=== PATIENT | female | born 1955 | race Caucasian/White ===

== ENCOUNTER → 2017-03-10 | Outpatient (CLI) | payer OTHER | END | disposition home or self-care (01) | LOC: YCFC.O 11:50 | PROVIDERS: ATTEND Nurse Practitioner Family | DX: E03.9 Hypothyroidism, unspecified (principal); E78.5 Hyperlipidemia, unspecified; E11.9 Type 2 diabetes mellitus without complications ==

== ENCOUNTER → 2017-05-08 | Outpatient (CLI) | payer OTHER ==
--- NOTE | 2017-05-11 10:48 | RAD ---
EXAM DESCRIPTION: Knee,Right 2 or More Views CLINICAL HISTORY: 61 years, Female, OTHER INSTABILITY, RIGHT KNEE COMPARISON: February 21, 2010 TECHNIQUE: Three views of the right knee. FINDINGS: Severe degenerative changes with [id number] appearance of the medial joint compartment is apparent with progression of the joint space narrowing and sclerosis and hypertrophic change since prior remote study. Mild chondrocalcinosis of the lateral joint compartment is present and moderate patellofemoral disease with a suggestion of very minimal joint fluid is noted. IMPRESSION: 1. Severe degenerative changes of the right knee, particularly medial joint compartment. Electronically signed by: Brett Pradhan MD 05/11/2017 10:46 AM CDT
--- NOTE | 2017-05-11 10:49 | RAD ---
EXAM DESCRIPTION: Lumbar Spine 5 Views CLINICAL HISTORY: LOW BACK PAIN COMPARISON: None Available. TECHNIQUE: Five views of the lumbar spine FINDINGS: Lower lumbar degenerative changes with facet hypertrophy and sclerosis is present with very early grade 1 degenerative spondylolisthesis at L4-5 and advanced facet sclerosis but normal alignment at L5-S1. Mild anterior degenerative lipping is present. The oblique views demonstrate no evidence of pars defects at either L4 or L5. Vertebral height is maintained and disc height is well-maintained as well. IMPRESSION: Mild degenerative disc disease with moderate facet sclerosis in the mid and lower lumbar spine with early degenerative spondylolisthesis L4-5, grade 1. Electronically signed by: Brett Pradhan MD 05/11/2017 10:48 AM CDT
== END ==
LOC: YCFC.O 14:38
PROVIDERS: ATTEND Nurse Practitioner Family
DX: M25.369 Other instability, unspecified knee (principal); M51.36 Other intervertebral disc degeneration, lumbar region; M43.16 Spondylolisthesis, lumbar region; M54.5 Low back pain

== ENCOUNTER → 2017-06-03 | Outpatient (CLI) | payer OTHER | END | disposition home or self-care (01) | LOC: YCFC.O 08:25 | PROVIDERS: ATTEND Nurse Practitioner Family | DX: E11.9 Type 2 diabetes mellitus without complications (principal) ==

== ENCOUNTER 2017-11-01 10:18 | Emergency (ER) | payer OTHER ==
[2017-11-01] MEDS: IPRATROPIUM/ALBUTEROL 3 ML VIAL NEB ONE (10:45)
[2017-11-01] MEDS ORDERED: cefTRIAXone SODIUM 1 GM VIAL ONE (11:40)
--- NOTE | 2017-11-01 11:42 | ED.PDOC ---
History of Present Illness - General Chief Complaint: General Stated Complaint: cough and doesn't feel well Time Seen by Provider: 11/01/17 10:31 Source: patient Exam Limitations: no limitations - History of Present Illness Initial Comments: The patient is a 62-year-old female presented to the emergency room secondary to cough for the last week that has been persistent. The patient does have a low-grade fever today. She is not having any chest pain but she is sore from coughing. She reports that she did have a mild sore throat at the start of it. No syncope or near syncope. She does have a history of asthma and COPD. She is out of her inhalers. She has had a productive sputum. Timing/Duration: 1 week Severity: mild Improving Factors: nothing Worsening Factors: nothing Associated Symptoms: cough, fever/chills, loss of appetite, malaise Allergies/Adverse Reactions: Allergies NO KNOWN ALLERGY Allergy (Verified 01/07/16 13:36) Home Medications: Ambulatory Orders Cephalexin [Keflex] 500 mg PO Q6HR #10 days 01/07/16 Review of Systems - Review of Systems Constitutional: States: fever, malaise EENTM: States: throat pain. Denies: eye pain, ear pain, nose congestion Respiratory: States: cough, short of breath, wheezing - mild. Denies: stridor Cardiology: States: no symptoms reported Gastrointestinal/Abdominal: States: no symptoms reported Genitourinary: States: no symptoms reported Musculoskeletal: States: no symptoms reported - chronic changes only Skin: States: no symptoms reported Neurological: States: anxiety Endocrine: States: no symptoms reported All other Systems: No Change from Baseline Past Medical History (General) - Patient Medical History Hx Seizures: No Hx Stroke: No Hx Dementia: No Hx Asthma: Yes Hx of COPD: Yes Hx Cardiac Disorders: Yes Hx Congestive Heart Failure: Yes Hx Pacemaker: No Hx Hypertension: Yes Hx Thyroid Disease: Yes Hx Diabetes: Yes Hx Gastroesophageal Reflux: Yes Hx Renal Disease: Yes Hx Cancer: No Hx of HIV: No Hx Hepatitis C: No Hx MRSA: No MRSA Source:: Wound Surgical History: appendectomy, Hysterectomy, other - Vaccination History Hx Influenza Vaccination: No Hx Pneumococcal Vaccination: No - Social History Hx Tobacco Use: No Hx Chewing Tobacco Use: No Hx Alcohol Use: No Hx Substance Use: No Hx Substance Use Treatment: No Hx Depression: No Feels Threatened In Home Enviroment: No Feels Threatened In a Relationship: No Hx Physical Abuse: No Hx Emotional Abuse: No Hx Suspected Abuse: No - Female History Patient is a Female of Child Bearing Age (10 -59 yrs old): No Patient : No Family Medical History - Family History Mother Living Status: Still Living Hx Family Diabetes: Yes Physical Exam - Physical Exam General Appearance: Alert, Anxious, No apparent distress Eye Exam: bilateral normal Ears, Nose, Throat: hearing grossly normal, nasal congestion - mild Neck: full range of motion, supple Respiratory: no respiratory distress, no accessory muscle use, other - he patient does have a rattly cough. She also does have some mild Rales left lower lung field. There are mild scattered wheezes. She moves air well. 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 She does not appear to have any significant lobar pneumonia, she is not septic, and she is not hypoxic. The patient is going to be placed on Combivent 4 times daily as well as an inhaled corticosteroid for her asthma and COPD component. For the infectious component she'll be covered with Levaquin 500 mg daily for the next 5 days. She needs to keep herself well-hydrated. She needs to control her blood sugars. Oral corticosteroids are being held secondary to her diabetes. She needs to follow up with her primary care doctor early next week. ER warnings were given for any significant worsening. - Results/Orders Results/Orders: Laboratory Tests 11/01/17 10:46 POC Glucose 183 H rapid flu is negative. Chest x-ray shows mild scattered infiltrates. No obvious lobar pneumonia. Departure - Departure Clinical Impression: Asthma exacerbation Acute bronchitis Qualifiers: Bronchitis organism: unspecified organism Qualified Code(s): J20.9 - Acute bronchitis, unspecified Disposition: Discharge to Home or Self Care Condition: Fair Departure Forms: ED Discharge - Pt. Copy, Patient Portal Self Enrollment Instructions: DI for Acute Bronchitis Diet: diabetic diet Activity: increase activity as tolerated Referrals: Ermelinda Gross MD [Primary Care Provider] - 1-2 Weeks Home Medications: Ambulatory Orders Cephalexin [Keflex] 500 mg PO Q6HR #10 days 01/07/16 Additional Instructions: the patient is a 62-year-old female presenting to the emergency room with a history of a cough and a low-grade fever for the last week. She does not appear to have any significant lobar pneumonia, she is not septic, and she is not hypoxic. The patient is going to be placed on Combivent 4 times daily as well as an inhaled corticosteroid for her asthma and COPD component. For the infectious component she'll be covered with Levaquin 500 mg daily for the next 5 days. She needs to keep herself well-hydrated. She needs to control her blood sugars. Oral corticosteroids are being held secondary to her diabetes. She needs to follow up with her primary care doctor early next week. ER warnings were given for any significant worsening.
--- NOTE | 2017-11-01 11:48 | RAD ---
EXAM: Frontal and lateral chest X-ray's obtained. CLINICAL INDICATION: cough, body aches 2 weeks COMPARISON: Chest x-ray from 08/23/2013 FINDINGS: There is prominence of the interstitial/pulmonary vascular markings throughout the lungs with superimposed hazy/patchy increased density in the right mid to lower lung zones. The cardiomediastinal silhouette and pulmonary vasculature appear within normal limits. Visualized osseous structures are moderately demineralized. IMPRESSION: Nonspecific findings which can be seen in the setting of mild congestion and pulmonary edema, and/or atypical pneumonitis/early pneumonia. Continued imaging follow-up is recommended. Electronically signed by: Evaristo Mccracken MD 11/01/2017 11:47 AM [facility] Workstation: [id number]
[2017-11-01] MEDS: levoFLOXacin 500 MG TAB PO ONE (12:07)
[2017-11-01] MEDS: cefTRIAXone SODIUM 1 GM VIAL IM ONE (12:07)
[2017-11-01 12:33] VITALS: BP 133/57; TEMP 99.8; O2SAT 92
== END 2017-11-01 12:33 | disposition home or self-care (01) ==
LOC: ER 10:18
DX: J20.9 Acute bronchitis, unspecified (principal); J45.901 Unspecified asthma with (acute) exacerbation; J44.9 Chronic obstructive pulmonary disease, unspecified; I11.0 Hypertensive heart disease with heart failure; I50.9 Heart failure, unspecified; E07.9 Disorder of thyroid, unspecified; E11.9 Type 2 diabetes mellitus without complications
CPT/HCPCS: 36416; 71020; 82948; 87502; 94640; J0696; J7620

== ENCOUNTER 2018-02-05 09:11 | Emergency (ER) | payer OTHER ==
[2018-02-05 09:32] VITALS: BP 117/77; TEMP 97.6; O2SAT 98
--- NOTE | 2018-02-05 09:40 | ED.PDOC ---
History of Present Illness - General Chief Complaint: Skin/Abrasion/Tear Stated Complaint: left leg swollen and red Time Seen by Provider: 02/05/18 09:34 Source: patient Exam Limitations: no limitations - History of Present Illness Initial Comments: Colette Mcleod 62 y/o female came to ER with redness and swelling left anterior leg for the last 3 days .No history of leg trauma,,pain.fever/chills.Stated had just got red also her right legs started swelling initially but went away.Had cbc done outpatient today which came back wiyh normal result. Timing/Duration: other - 3 days Severity: moderate Location: extremities - left lower leg Improving Factors: nothing Worsening Factors: nothing Associated Symptoms: other - see hpi Allergies/Adverse Reactions: Allergies NO KNOWN ALLERGY Allergy (Verified 01/07/16 13:36) Home Medications: Ambulatory Orders Cephalexin [Keflex] 500 mg PO Q6HR #10 days 01/07/16 Cephalexin 1,000 mg PO BID 10 Days #40 cap 02/05/18 Review of Systems - Review of Systems Constitutional: States: no symptoms reported EENTM: States: no symptoms reported Respiratory: States: no symptoms reported Cardiology: States: no symptoms reported Gastrointestinal/Abdominal: States: no symptoms reported Genitourinary: States: no symptoms reported Musculoskeletal: States: no symptoms reported Skin: States: see HPI Neurological: States: no symptoms reported Past Medical History (General) - Patient Medical History Hx Seizures: No Hx Stroke: No Hx Dementia: No Hx Asthma: Yes Hx of COPD: Yes Hx Cardiac Disorders: Yes Hx Congestive Heart Failure: Yes Hx Pacemaker: No Hx Hypertension: Yes Hx Thyroid Disease: Yes Hx Diabetes: Yes Hx Gastroesophageal Reflux: Yes Hx Renal Disease: Yes Hx Cancer: No Hx of HIV: No Hx Hepatitis C: No Hx MRSA: No MRSA Source:: Wound Surgical History: appendectomy, other - ,hysterectomy,right knee - Vaccination History Hx Influenza Vaccination: No Hx Pneumococcal Vaccination: No - Social History Hx Tobacco Use: No Hx Chewing Tobacco Use: No Hx Alcohol Use: No Hx Substance Use: No Hx Substance Use Treatment: No Hx Depression: No Hx Physical Abuse: No Hx Emotional Abuse: No Hx Suspected Abuse: No - Activities of Daily Living Grooming Ability: Independent Eating (Feeding) Ability: Independent Toileting Ability: Independent - Female History Patient : No Family Medical History - Family History Mother Living Status: Still Living Hx Family Diabetes: Yes - son,dad,mom Physical Exam - Physical Exam General Appearance: Agitated, Comfortable, No apparent distress Eyes, Ears, Nose, Throat Exam: normal ENT inspection Neck: non-tender, full range of motion, supple Cardiovascular/Chest: normal peripheral pulses, regular rate, rhythm, no gallop , no murmur Respiratory: chest non-tender, normal breath sounds, no respiratory distress Gastrointestinal/Abdominal: non tender, soft, no organomegaly Back Exam: no CVA tenderness Extremity: no pedal edema, no calf tenderness, other - negative Homans sign left leg Neurologic: alert, oriented x 3 Skin Exam: warm/dry, normal color Skin Problem Location: lower extremities - left leg Skin Character: erythema Lymphatic: no adenopathy Progress - Progress Progress: 02/05/18 09:44 Vital Signs - 24 hr 02/05/18 09:27 Temperature 97.6 F Pulse Rate [ 91 H left brachial] Respiratory 18 Rate Blood Pressure 117/77 [left brachial] O2 Sat by Pulse 98 Oximetry Departure - Departure Clinical Impression: Cellulitis Qualifiers: Site of cellulitis: extremity Site of cellulitis of extremity: lower extremity Laterality: left Qualified Code(s): L03.116 - Cellulitis of left lower limb Time of Disposition: 09:45 Disposition: Discharge to Home or Self Care Condition: Fair Departure Forms: ED Discharge - Pt. Copy, Patient Portal Self Enrollment Instructions: Cellulitis, DI for Cellulitis -- Adult Referrals: Ermelinda Gross MD [Primary Care Provider] - 1-2 Weeks Prescriptions: Cephalexin 1,000 mg PO BID 10 Days #40 cap Home Medications: Ambulatory Orders Cephalexin [Keflex] 500 mg PO Q6HR #10 days 01/07/16 Cephalexin 1,000 mg PO BID 10 Days #40 cap 02/05/18 Additional Instructions: Elevate left leg 20 degrees at bedtime until better;follow up with your primary Md 08 February 2018
== END 2018-02-05 09:55 | disposition home or self-care (01) ==
LOC: ER 09:11
DX: L03.116 Cellulitis of left lower limb (principal); J44.9 Chronic obstructive pulmonary disease, unspecified; I11.0 Hypertensive heart disease with heart failure; I50.9 Heart failure, unspecified; E07.9 Disorder of thyroid, unspecified; E11.9 Type 2 diabetes mellitus without complications; K21.9 Gastro-esophageal reflux disease without esophagitis

== ENCOUNTER → 2018-02-05 | Outpatient (CLI) | payer OTHER | LOC: LAB.O 08:40 | DX: E03.9 Hypothyroidism, unspecified (principal); I10 Essential (primary) hypertension; E11.9 Type 2 diabetes mellitus without complications; E78.5 Hyperlipidemia, unspecified ==

== ENCOUNTER 2018-02-14 14:07 | Emergency (ER) | payer OTHER ==
--- NOTE | 2018-02-14 14:29 | ED.PDOC ---
History of Present Illness - General Chief Complaint: Skin/Abrasion/Tear Stated Complaint: LLE redness and swelling Time Seen by Provider: 02/14/18 14:08 Source: patient Exam Limitations: no limitations - History of Present Illness Initial Comments: the patient's is 62-year-old female presenting to the emergency room secondary to concern over blisters forming over her area of stasis dermatitis to the left anterior lower leg. She is currently taking 2 antibiotics for this and in general the cellulitis is improving. She developed blisters a couple of days ago in that area from the extra edema. The blisters are about to rupture and they do clinically appear to simply be serous exudate. No evidence of edson pus. Blisters were left intact. By area of tracing around the area of cellulitis the cellulitis is decreasing in size. She does still have significant edema. Timing/Duration: unsure Severity: mild Improving Factors: nothing Worsening Factors: nothing Associated Symptoms: denies symptoms Allergies/Adverse Reactions: Allergies anxiety medication Allergy (Uncoded 02/14/18 14:20) Home Medications: Ambulatory Orders Cephalexin [Keflex] 500 mg PO Q6HR #10 days 01/07/16 Cephalexin 1,000 mg PO BID 10 Days #40 cap 02/05/18 Review of Systems - Review of Systems Review of Systems: 02/14/18 14:28 review of systems is for new symptoms or change in symptoms only Constitutional: States: no symptoms reported EENTM: States: no symptoms reported Respiratory: States: no symptoms reported Cardiology: States: no symptoms reported Gastrointestinal/Abdominal: States: no symptoms reported Genitourinary: States: no symptoms reported Musculoskeletal: States: no symptoms reported Skin: States: see HPI Neurological: States: no symptoms reported Endocrine: States: no symptoms reported All other Systems: No Change from Baseline Past Medical History (General) - Patient Medical History Hx Seizures: No Hx Stroke: No Hx Dementia: No Hx Asthma: Yes Hx of COPD: Yes Hx Cardiac Disorders: Yes Hx Congestive Heart Failure: Yes Hx Pacemaker: No Hx Hypertension: Yes Hx Thyroid Disease: Yes Hx Diabetes: Yes Hx Gastroesophageal Reflux: Yes Hx Renal Disease: Yes Hx Cancer: No Hx of HIV: No Hx Hepatitis C: No Hx MRSA: No MRSA Source:: Wound Surgical History: Hysterectomy - Vaccination History Hx Influenza Vaccination: No Hx Pneumococcal Vaccination: No - Social History Hx Tobacco Use: No Hx Chewing Tobacco Use: No Hx Alcohol Use: No Hx Substance Use: No Hx Substance Use Treatment: No Hx Depression: No Hx Physical Abuse: No Hx Emotional Abuse: No Hx Suspected Abuse: No - Female History Patient : No Family Medical History - Family History Mother Living Status: Still Living Hx Family Diabetes: Yes - son,dad,mom Physical Exam - Physical Exam General Appearance: Alert, Anxious, No apparent distress Eye Exam: bilateral normal Ears, Nose, Throat: hearing grossly normal, normal ENT inspection Neck: full range of motion, supple Respiratory: no respiratory distress, no accessory muscle use Peripheral Pulses: radial,right: 2+, radial,left: 2+ Gastrointestinal/Abdominal: non tender - obese, soft Rectal Exam: deferred Back Exam: no CVA tenderness, no vertebral tenderness Extremity: normal range of motion, no calf tenderness, normal capillary refill, other - the patient does have 2+ edema to bilateral lower extremities. 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 Comments: Vital Signs - 24 hr 02/14/18 14:12 Temperature 98.1 F Pulse Rate [ 87 pulse ox] Respiratory 18 Rate Blood Pressure 146/79 [Left Arm] O2 Sat by Pulse 98 Oximetry Progress - Progress Progress: 02/14/18 14:29 the patient's a 62-year-old female presenting to the emergency room secondary to blister formation in the area of her stasis dermatitis to her left lower leg. The fluid in the blisters appears to be simply serous fluid. Blisters are left intact. The patient needs to obtain some Aquaphor or Vaseline and coat the leg with a thin layer twice daily. Additionally she can use Rafa wraps starting at the toe and extending up to just below the knee and adjust these 4-5 times daily to prevent any constriction bands. This will help reduce the edema and reduced blister formation. She needs to continue her antibiotic therapy. She needs to follow up with her primary care doctor later in the week. In general the area of cellulitis does appear to be reducing based on the tracing on her leg. ER warnings were given for any acute worsening. If the blisters ruptured and the patient is to wash the denuded area 2-3 times daily with an antibacterial soap and water. Departure - Departure Clinical Impression: Stasis dermatitis Qualifiers: Laterality: left Qualified Code(s): I87.2 - Venous insufficiency (chronic) ( peripheral) Disposition: Discharge to Home or Self Care Condition: Fair Departure Forms: ED Discharge - Pt. Copy, Patient Portal Self Enrollment Instructions: DI for Wound Infection Diet: diabetic diet Activity: increase activity as tolerated Referrals: Ermelinda Gross MD [Primary Care Provider] - 1-5 Days Home Medications: Ambulatory Orders Cephalexin [Keflex] 500 mg PO Q6HR #10 days 01/07/16 Cephalexin 1,000 mg PO BID 10 Days #40 cap 02/05/18 Additional Instructions: the patient's a 62-year-old female presenting to the emergency room secondary to blister formation in the area of her stasis dermatitis to her left lower leg. The fluid in the blisters appears to be simply serous fluid. Blisters are left intact. The patient needs to obtain some Aquaphor or Vaseline and coat the leg with a thin layer twice daily. Additionally she can use Rafa wraps starting at the toe and extending up to just below the knee and adjust these 4-5 times daily to prevent any constriction bands. This will help reduce the edema and reduced blister formation. She needs to continue her antibiotic therapy. She needs to follow up with her primary care doctor later in the week. In general the area of cellulitis does appear to be reducing based on the tracing on her leg. ER warnings were given for any acute worsening. If the blisters ruptured and the patient is to wash the denuded area 2-3 times daily with an antibacterial soap and water.
[2018-02-14 14:53] VITALS: BP 106/70; TEMP 98.1; O2SAT 97
== END 2018-02-14 14:39 | disposition home or self-care (01) ==
LOC: ER 14:07
DX: I87.2 Venous insufficiency (chronic) (peripheral) (principal); L03.116 Cellulitis of left lower limb; J44.9 Chronic obstructive pulmonary disease, unspecified; I11.0 Hypertensive heart disease with heart failure; I50.9 Heart failure, unspecified; E11.9 Type 2 diabetes mellitus without complications; K21.9 Gastro-esophageal reflux disease without esophagitis; E07.9 Disorder of thyroid, unspecified; N28.9 Disorder of kidney and ureter, unspecified

== ENCOUNTER → 2018-04-10 | Outpatient (CLI) | payer OTHER | LOC: YCFC.O 10:53 | DX: R79.89 Other specified abnormal findings of blood chemistry (principal) ==

== ENCOUNTER 2018-05-07 04:01 | Emergency (ER) | payer OTHER ==
--- NOTE | 2018-05-07 05:13 | RAD ---
EXAM DESCRIPTION: Single view of the chest CLINICAL HISTORY: hyperglycemia COMPARISON: 11/01/2017 FINDINGS: Single frontal view of the chest. The cardiomediastinal silhouette has normal size and contour. No pneumothorax or large effusion. Bilateral interstitial opacities relatively stable in appearance. No displaced rib fractures identified. Low lung volumes. Elevation the left hemidiaphragm. Upper abdominal soft tissues are unremarkable. IMPRESSION: 1. Bilateral interstitial opacities are again identified and may be related lung disease however superimposed acute process such as edema or interstitial pneumonia cannot be excluded. Electronically signed by: Jhon Torres 05/07/2018 5:12 AM CDT
[2018-05-07] MEDS ORDERED: SODIUM CHLORIDE 0.9% 1000ML 500 ML IVS ONE (05:17)
--- NOTE | 2018-05-07 05:43 | ED.PDOC ---
History of Present Illness - General Chief Complaint: Diabetic Complaint Stated Complaint: disoriented, elevated blood sugars Time Seen by Provider: 05/07/18 04:21 Source: patient, RN notes reviewed, Vital Signs reviewed, family, old records Exam Limitations: clinical condition, other - she won't answer many questions. Insists on giving her something to drink. - History of Present Illness Initial Comments: Her son reports that her decline started about 2 days ago. She began complaining of generalized pain to the point where she couldn't walk any more & began using a wheel chair. She refused to come to the hospital. Tonight she couldn't get out of bed so he called EMS. She was well before 2 days ago, has never had this before, has been taking her medicines as usual & eating as she normally does. He cannot account for anything new. Just generalized pain, inability to walk, weakness & hyperglycemia. She uniformly answers no to ROS questions. Timing/Duration: getting worse, other - 2 days ago Severity: severe Improving Factors: nothing Worsening Factors: nothing Associated Symptoms: weakness Allergies/Adverse Reactions: Allergies anxiety medication Allergy (Uncoded 02/14/18 14:20) Home Medications: Ambulatory Orders Cephalexin [Keflex] 500 mg PO Q6HR #10 days 01/07/16 Cephalexin 1,000 mg PO BID 10 Days #40 cap 02/05/18 Review of Systems - Review of Systems Constitutional: States: see HPI, weakness EENTM: States: no symptoms reported Respiratory: States: no symptoms reported Cardiology: States: no symptoms reported Gastrointestinal/Abdominal: States: no symptoms reported Genitourinary: States: no symptoms reported Musculoskeletal: States: other - myalgias Skin: States: no symptoms reported Neurological: States: see HPI Endocrine: States: see HPI Hematologic/Lymphatic: States: no symptoms reported Past Medical History (General) - Patient Medical History Hx Seizures: No Hx Stroke: No Hx Dementia: No Hx Asthma: Yes Hx of COPD: Yes Hx Cardiac Disorders: Yes Hx Congestive Heart Failure: Yes Hx Pacemaker: No Hx Hypertension: Yes Hx Thyroid Disease: Yes Hx Diabetes: Yes Hx Gastroesophageal Reflux: Yes Hx Renal Disease: Yes Hx Cancer: No Hx of HIV: No Hx Hepatitis C: No Hx MRSA: No MRSA Source:: Wound Surgical History: Hysterectomy - Vaccination History Hx Influenza Vaccination: No Hx Pneumococcal Vaccination: No - Social History Hx Tobacco Use: No Hx Chewing Tobacco Use: No Hx Alcohol Use: No Hx Substance Use: No Hx Substance Use Treatment: No Hx Depression: No Hx Physical Abuse: No Hx Emotional Abuse: No Hx Suspected Abuse: No - Female History Patient : No Family Medical History - Family History Mother Living Status: Still Living Hx Family Diabetes: Yes - son,dad,mom Physical Exam - Physical Exam General Appearance: Alert, Ill Appearing, Restless Eye Exam: bilateral normal Ears, Nose, Throat: hearing grossly normal, other - dry mucosa Neck: full range of motion, supple, normal inspection Respiratory: lungs clear, normal breath sounds - RR 24 Cardiovascular/Chest: regular rate, rhythm, no gallop, no JVD, no murmur Gastrointestinal/Abdominal: non tender, soft, other - obese Extremity: normal capillary refill, pedal edema, other - will only minimally comply with testing Neurologic: flying i instructor II-XII nml as tested, alert, depressed affect Skin Exam: normal color, warm/dry, other - poor turgor Progress - Progress Progress: 05/07/18 05:41 She seems to feel no better but she continues to answer only a minimal number of questions. She does now admit to having diarrhea at home but she won't give any details. She insists it is hurting her back to lay flat & that's about all she will talk about. Clinically she does appear dry but considering her CXR & her peripheral edema I'm slowly hydrating her. - Results/Orders Results/Orders: Na 134; Cr 1.23; BUN/Cr 24; glu 359; WBC 10; Hgb 12; Plt 123; CK 129; Tr 0.02; BNP 87; UA glu but no ketones - EKG/XRAY/CT EKG: Sinus, Tachy Comments: HR 106; LAD; poor Rwave progression; normal intervals XRAY: chest - bilateral interstitial opacities but stable from previous Departure - Departure Clinical Impression: Hyperglycemia Diabetes mellitus Qualifiers: Diabetes mellitus type: type 2 Diabetes mellitus complication status: without complication Diabetes mellitus longterm insulin use: with longterm use Qualified Code(s): E11.9 - Type 2 diabetes mellitus without complications; Z79.4 - [facility] (current) use of insulin Disposition: Discharge to Home or Self Care Condition: Fair Departure Forms: ED Discharge - Pt. Copy, Patient Portal Self Enrollment Instructions: DI for Diabetes Type 2 Referrals: Ermelinda Gross MD [Primary Care Provider] - 1-2 Weeks Home Medications: Ambulatory Orders Cephalexin [Keflex] 500 mg PO Q6HR #10 days 01/07/16 Cephalexin 1,000 mg PO BID 10 Days #40 cap 02/05/18
[2018-05-07] MEDS ORDERED: KETOROLAC TROMETHAMINE INJ 30 MG/ML VIAL ONE (07:07)
[2018-05-07] MEDS ORDERED: SODIUM CHLORIDE 0.9% 1000ML 1,000 ML IVS ONE (07:07)
[2018-05-07] MEDS ORDERED: KETOROLAC TROMETHAMINE INJ 30 MG/ML VIAL IV ONE (07:07)
[2018-05-07] MEDS ORDERED: INSULIN, REG.(HUMAN) 100 U/ML VIAL ONE (09:02)
[2018-05-07] MEDS ORDERED: INSULIN, REG.(HUMAN) 100 U/ML VIAL IV ONE (09:04)
--- NOTE | 2018-05-07 10:06 | CT ---
Procedure: CT ABDOMEN PELVIS WITH IV CONTRAST Exam Date: 05/07/2018 Ordering Provider: RAZA WOOD Clinical Indication: Generalized abdominal pain Comparison: None TECHNIQUE: 5 mm images were taken through the abdomen and pelvis after the administration of nonionic intravenous contrast material. Oral contrast was not administered. Coronal and sagittal reformatted images were generated. This exam was performed according to our departmental dose optimization program which includes use of automated exposure control, adjustment of the mA and/or kV according to patient size and/or use of iterative reconstruction technique. FINDINGS: Lower chest: Nonacute Abdomen: Liver and biliary system: Hepatomegaly. No calcified gallstones visualized. Spleen: Enlarged Pancreas: Unremarkable Adrenal glands: Unremarkable Kidneys, ureters, bladder: No hydronephrosis in either kidney. Ureters are unremarkable. Caputo catheter in the bladder. Lymph nodes: No lymphadenopathy by size criteria. Retroperitoneum, abdominal wall, peritoneal cavity: No free intraperitoneal air. Trace free fluid in the pelvis. Vessels: No abdominal aortic aneurysm. Pelvis: Lymph nodes: No lymphadenopathy Bowel: Small bowel protrudes between 2 adjacent sigmoid segments in the pelvis, possibly an early anterior sigmoid hernia without evidence of obstruction at this time. Appendix not definitely visualized. Colonic diverticulosis without evidence of diverticulitis. Pelvic organs: Prior hysterectomy. Bones: Nonacute IMPRESSION: 1. Hepatosplenomegaly. 2.Small bowel protrudes between 2 adjacent sigmoid segments in the pelvis, possibly an early intersigmoid hernia without evidence of obstruction at this time. 3. Colonic diverticulosis without evidence of diverticulitis. Electronically signed by: Daniel Earl MD 05/07/2018 10:04 AM CDT
[2018-05-07 10:56] VITALS: BP 110/94; TEMP 99; O2SAT 96
== END 2018-05-07 10:55 | disposition home or self-care (01) ==
LOC: ER 04:01
DX: E11.65 Type 2 diabetes mellitus with hyperglycemia (principal); J44.9 Chronic obstructive pulmonary disease, unspecified; J45.909 Unspecified asthma, uncomplicated; I11.0 Hypertensive heart disease with heart failure; I50.9 Heart failure, unspecified; K21.9 Gastro-esophageal reflux disease without esophagitis; E07.9 Disorder of thyroid, unspecified; Z79.4 Long term (current) use of insulin
CPT/HCPCS: 36415; 36416; 71045; 74177; 80053; 81001; 82550; 82553; 82948; 83880; 84443; 84484; 85025; 93005; J1885; J7030

== ENCOUNTER 2018-07-17 17:22 | Inpatient (IN) | payer OTHER ==
[2018-07-17] MEDS ORDERED: ONDANSETRON INJ 4 MG/2 ML VIAL IV ONE (17:48)
[2018-07-17] MEDS ORDERED: ACETAMINOPHEN 500 MG TAB PO ONE (17:48)
[2018-07-17] MEDS ORDERED: KETOROLAC TROMETHAMINE INJ 30 MG/ML VIAL IV ONE (17:48)
[2018-07-17] MEDS ORDERED: MORPHINE SULFATE INJ 10 MG/ML VIAL IV ONE (17:48)
[2018-07-17] MEDS ORDERED: PIPERACILLIN/TAZOBACTAM 3.375 GM in SODIUM CHLORIDE 0.9% 100ML 100 ML IVPB ONE (17:48)
[2018-07-17] MEDS ORDERED: SODIUM CHLORIDE 0.9% 1000ML 250 ML IVS ONE (17:52)
[2018-07-17] MEDS ORDERED: PIPERACILLIN/TAZOBACTAM 3.375 GM VIAL IVPB ONE (17:53)
[2018-07-17] MEDS ORDERED: SODIUM CHLORIDE 0.9% 100ML 100 ML IVPB ONE (17:54)
--- NOTE | 2018-07-17 18:09 | ED.PDOC ---
History of Present Illness - General Chief Complaint: General Time Seen by Provider: 07/17/18 17:37 Source: patient, Vital Signs reviewed, family Exam Limitations: clinical condition, other - doesn't want to answer questions, wants her family to answer them - History of Present Illness Initial Comments: at about 11:30 this morning she developed N/V, generalized pain & chills. She didn't notice that her left leg was red & hot. Was in her usual state of health last night. Timing/Duration: 4-6 hours Severity: severe Improving Factors: nothing Worsening Factors: nothing Associated Symptoms: fever/chills, nausea/vomiting, weakness Allergies/Adverse Reactions: Allergies anxiety medication Allergy (Uncoded 02/14/18 14:20) Home Medications: Ambulatory Orders Acetaminophen W/ Codeine [Tylenol W/ CODEINE #3] 1 ea PO PRN 07/17/18 Canagliflozin [Invokana] 200 mg PO DAILY 07/17/18 Clonazepam 1 - 2 mg PO PRN 07/17/18 Duloxetine HCl 60 mg PO BID 07/17/18 Fesoterodine Fumarate [Toviaz] 4 mg PO DAILY 07/17/18 Levothyroxine Sodium 300 mcg PO DAILY 07/17/18 Lisinopril & Hydrochlorothiazi [Lisinopril/Hctz 20-12.5 mg] 1 tab PO BID Metformin HCl 500 mg PO BID 07/17/18 Omeprazole [Omeprazole Dr] 20 mg PO DAILY 07/17/18 Pregabalin [Lyrica] 75 mg PO TID 07/17/18 Tramadol HCl 50 mg PO PRN 07/17/18 Review of Systems - Review of Systems Constitutional: States: see HPI, chills, weakness. Denies: fever EENTM: States: no symptoms reported Respiratory: States: no symptoms reported Cardiology: States: no symptoms reported Gastrointestinal/Abdominal: States: see HPI, diarrhea, nausea, vomiting. Denies : abdominal pain Genitourinary: States: no symptoms reported Musculoskeletal: States: back pain, muscle pain Skin: States: no symptoms reported Neurological: States: anxiety, weakness. Denies: headache Endocrine: States: see HPI, increased thirst. Denies: flushing Hematologic/Lymphatic: States: no symptoms reported Past Medical History (General) - Patient Medical History Hx Seizures: No Hx Stroke: No Hx Dementia: No Hx Asthma: Yes Hx of COPD: Yes Hx Cardiac Disorders: Yes Hx Congestive Heart Failure: Yes Hx Pacemaker: No Hx Hypertension: Yes Hx Thyroid Disease: Yes Hx Diabetes: Yes Hx Gastroesophageal Reflux: Yes Hx Renal Disease: Yes Hx Cancer: No Hx of HIV: No Hx Hepatitis C: No Hx MRSA: No MRSA Source:: Wound - Vaccination History Hx Tetanus, Diphtheria Vaccination: No Hx Influenza Vaccination: No Hx Pneumococcal Vaccination: No Immunizations Up to Date: No - Social History Hx Tobacco Use: No Hx Chewing Tobacco Use: No Hx Alcohol Use: No Hx Substance Use: No Hx Substance Use Treatment: No Hx Depression: No Hx Physical Abuse: No Hx Emotional Abuse: No Hx Suspected Abuse: No - Activities of Daily Living Hospice Agency (if applicable):: None - Female History Patient is a Female of Child Bearing Age (10 -59 yrs old): No Patient : No Family Medical History - Family History Mother Living Status: Still Living Hx Family Diabetes: Yes - son,dad,mom Physical Exam - Physical Exam General Appearance: Alert, Ill Appearing, Obese, Unkempt, Other - uncomfortable Eye Exam: bilateral normal Ears, Nose, Throat: hearing grossly normal, other - dry lips Neck: full range of motion, supple, normal inspection Respiratory: normal breath sounds, respiratory distress - tachypneic Cardiovascular/Chest: regular rate, rhythm, no gallop, no JVD, no murmur, other - pitting edema Gastrointestinal/Abdominal: non tender, soft, other - morbid obesity Extremity: normal capillary refill, pedal edema, other - global weakness; left leg swollen with anterior cellulitis Neurologic: alert, oriented x 3, motor weakness Skin Exam: warm/dry, other - left leg cellulitis Lymphatic: no adenopathy Progress - Progress Progress: 07/17/18 18:37 Feels much better. HR 111. Consents to admission but wants to stay here. 07/17/18 19:26 Tolerating PO. First liter of fluid almost finished. Infection site = cellulitis left lower leg. - Results/Orders Results/Orders: WBC 8 lactate 2.6 - EKG/XRAY/CT XRAY: chest - WNL CT Ordered: No CT Interpretation Call Back: No - Consult/PCP Time Called: 18:45 Consult/PCP: d/w Juan Arnold Departure - Departure Clinical Impression: Fever Qualifiers: Fever type: unspecified Qualified Code(s): R50.9 - Fever, unspecified Cellulitis Qualifiers: Site of cellulitis: extremity Site of cellulitis of extremity: lower extremity Laterality: left Qualified Code(s): L03.116 - Cellulitis of left lower limb Sepsis Qualifiers: Sepsis type: sepsis due to unspecified organism Qualified Code(s): A41.9 - Sepsis, unspecified organism Time of Disposition: 19:17 Disposition: Admit Patient Home Medications: Ambulatory Orders Acetaminophen W/ Codeine [Tylenol W/ CODEINE #3] 1 ea PO PRN 07/17/18 Canagliflozin [Invokana] 200 mg PO DAILY 07/17/18 Clonazepam 1 - 2 mg PO PRN 07/17/18 Duloxetine HCl 60 mg PO BID 07/17/18 Fesoterodine Fumarate [Toviaz] 4 mg PO DAILY 07/17/18 Levothyroxine Sodium 300 mcg PO DAILY 07/17/18 Lisinopril & Hydrochlorothiazi [Lisinopril/Hctz 20-12.5 mg] 1 tab PO BID Metformin HCl 500 mg PO BID 07/17/18 Omeprazole [Omeprazole Dr] 20 mg PO DAILY 07/17/18 Pregabalin [Lyrica] 75 mg PO TID 07/17/18 Tramadol HCl 50 mg PO PRN 07/17/18 Critical Care Note - Critical Care Note Total Time (mins): 30
--- NOTE | 2018-07-17 18:10 | RAD ---
EXAM DESCRIPTION: Chest,1 View CLINICAL HISTORY:62 years Female, fever Comparison: May 07, 2018 FINDINGS: No focal lung consolidation. No pleural effusion. No pneumothorax. Cardiac and mediastinal silhouette is unremarkable. No acute osseous abnormality. Soft tissues are unremarkable. IMPRESSION: No acute findings. No focal lung consolidation. Electronically signed by: Arjun Flower MD 07/17/2018 6:09 PM CDT
[2018-07-17] MEDS ORDERED: SODIUM CHLORIDE 0.9% 1000ML 1,000 ML IVS ONE ×2 (18:44→22:14)
--- NOTE | 2018-07-17 19:45 | HP ---
SUPERVISING PHYSICIAN: LAUREN ABREU MD CHIEF COMPLAINT: Nausea and vomiting, chills. HISTORY OF PRESENT ILLNESS: Ms. Mcleod is a 62 year-old female patient with a history of diabetes and obesity. She presented to the Emergency Room last night after she started having some generalized pain, chills and noticed that her left leg was swollen, hot and painful. She notes she was in her usual health within the last 24 hours but has had some issues with the left leg swelling at times but has not had any significant pain or redness. On initial presentation to the Emergency Room she was febrile with a temperature of 102.5 with a heart rate of 113, mildly hypotensive with a blood pressure of 107/47. Initial laboratory studies showed a normal white count but a left shift. Her chemistries were significant for a mild hyponatremia as well as increased renal function with a creatinine of 1.40 and BUN of 31. Her blood sugar was over 424 and lactic acid was at 2.6. Liver functions were all within normal limits. Dr. Franz, Emergency Room physician, requested the patient be admitted with concerns for sepsis secondary to left lower extremity cellulitis requiring initiation of parenteral antibiotics and further evaluation. In the Emergency Room she was started on antibiotics initially with Zosyn. She was given two liters of fluid. She is now going to be admitted to the medical/surgical floor. At time of admission she was in stable condition. PAST MEDICAL HISTORY: 1. Diabetes mellitus type 2 on insulin and oral therapy. 2. Hypertension. 3. Hypothyroidism. 4. Depression and anxiety. 5. Diabetic neuropathy in the lower extremities. 6. Bilateral cataracts. PAST SURGICAL HISTORY: 1. times 1. 2. Hernia repair. 3. Appendectomy. CURRENT MEDICATIONS: 1. Toviaz 4 mg daily. 2. Duloxetine 60 mg b.i.d. 3. Clonazepam 1 to 2 mg p.r.n. as needed for anxiety. 4. Tylenol No. 3, one tablet as needed p.r.n. 5. Metformin 500 mg b.i.d. 6. Lyrica 75 mg t.i.d. 7. Tramadol 50 mg p.r.n. 8. Lisinopril 20 mg. 9. Hydrochlorothiazide 12.5 mg, one tablet b.i.d. 10. Levothyroxine 300 mcg daily. 11. Omeprazole 20 mg daily. 12. Invokana 300 mg daily. ALLERGIES: Anxiety medication. FAMILY HISTORY: Significant for cancer, diabetes and hypertension. SOCIAL HISTORY: The patient is disabled. She lives in [place] with her sister, her mother and son. She has never smoked tobacco or drank alcohol and does not use illicit drugs. REVIEW OF SYSTEMS: CONSTITUTIONAL: Positive for fevers, chills, generalized body aches. HEENT: Negative for nasal congestion, ear ache, sore throat, vision changes. CHEST: Denies cough, wheezing or shortness of breath. HEART: Denies chest pain, palpitations or syncopal episodes or chronic peripheral edema. ABDOMEN: Positive as noted in history of present illness, nausea and vomiting along with some diarrhea but denies any abdominal pain, hematochezia or any other bowel habit changes. GENITOURINARY: Denies dysuria, hematuria, polyuria or other urinary symptoms. MUSCULOSKELETAL: Notes she does have chronic back pain and generalized body aches. EXTREMITIES: Notes she has had some mild swelling of the lower extremity but it has worsened as per history of present illness. Denies any edema other than the unilateral swelling of the left leg. NEUROLOGIC: Positive for anxiety or generalized weakness. Denies any headaches , syncopal episodes, ataxia, seizures. ENDOCRINE: As noted in history of present illness. Polydipsia with history of diabetes mellitus. PHYSICAL EXAMINATION: VITAL SIGNS: Temperature 102.5, pulse 113, blood pressure initially 107/47, respirations 28, saturation 96% on room air. Admission weight 154.4 kg. GENERAL: The patient is very unkept but appears to be in no acute distress at time of admission to the medical/surgical floor but is ill-appearing. HEENT: Tympanic membranes are clear. Oropharynx pink and moist with no notable lesion. NECK: Supple, non-tender, full range of motion. No jugular venous distention. CHEST: Lung sounds are clear to auscultation bilaterally without rhonchi, rales, or wheezes. CARDIOVASCULAR: Regular rate and rhythm without appreciable murmurs, gallops, or rubs. ABDOMEN: Obese, soft, non-tender, positive bowel sounds. EXTREMITIES: Pedal edema noted to the left lower extremity at 1+ with some cellulitis on the anterior aspect with no obvious rashes, lesions, open sores or abscesses. No other cyanosis, clubbing, or edema. NEUROLOGIC: She is alert and oriented x3. LABORATORY: White count on admission 8,100 with hemoglobin of 12.5 and hematocrit 38.2. Platelet count 109,000. Differential shows a left shift. Chemistries showed a hyponatremia of 133 with a potassium of 4.7, BUN initially 31, creatinine 1.4. Glucose 399 with lactic acid initially at 2.6, calcium normal at 8.9. All liver function within normal limits. BNP barely elevated at 118. C-reactive protein was pending. Urinalysis pending. MICROBIOLOGY: Blood cultures pending. RADIOLOGY: Chest x-ray on admission, single view chest per radiology interpretation showed no acute findings. no lung consolidations. Ultrasound of the left lower extremity pending. ASSESSMENT: 1. Left lower extremity cellulitis with remote concern for DVT, awaiting ultrasound with initiation of Lovenox 1 mg/kg. 2. Sepsis noted with a fever of 102.5, tachycardia and mild hypertension, likely secondary to #1 requiring initiation of fluids and antibiotics. 3. Poorly controlled diabetes mellitus 2 on both insulin and oral therapy. 4. Hypertension with some mild hypotension secondary to #2 on admission. 5. Hypothyroidism on supplementation. 6. Chronic depression and anxiety. 7. Chronic diabetic neuropathy of lower extremities. 8. Morbid obesity as noted with a body mass index of 53.3. PLAN: The patient is going to be admitted for initiation of antibiotics for concerns for sepsis secondary to left lower extremity cellulitis. She was given an initial dose of Zosyn in the Emergency Room. This will be followed up with vancomycin 2000 mg initial dose to be continued per pharmacy protocol, as well as Rocephin 1 gram every 12 hours. I will start her on 1 mg/kg of Lovenox with concerns for a questionable DVT of that left lower extremity until we can get ultrasound completed on Thursday. We will resume her home medications once those have been updated and verified. We will aggressively manage her blood sugars with both Levemir and sliding scale as well as likely need to cover with some additional AC coverage. I will give her another liter of saline and this will be continued with maintenance with normal saline with 20 of potassium at 150 an hour. We will plan to repeat labs in the morning as well as in 4 hours since the last lactic acid to insure that she is progressing with management of antibiotic and fluids with concerns for sepsis. We will also elevate her left lower extremity to help with the edema. Will anticipate her length of stay to be at least 2 to 3 days. Until she can transition to oral medication, we will continue to monitor and treat appropriately. #[id number] [facility]
[2018-07-17] MEDS ORDERED: MORPHINE SULFATE INJ 10 MG/ML VIAL IV PRN (20:16)
[2018-07-17] MEDS ORDERED: GLUCAGON INJ 1 MG VIAL SUBCU PRN (20:16)
[2018-07-17] MEDS ORDERED: HYDROcodone 5MG/APAP 325MG 1 EA TAB PO PRN (20:16)
[2018-07-17] MEDS ORDERED: DEXTROSE 50% 25 GM/50 ML SYG IV PRN (20:16)
[2018-07-17] MEDS ORDERED: FLUCONAZOLE 150 MG TAB PO ONE (20:47)
[2018-07-17] MEDS ORDERED: KCL 20 MEQ/NS 1,000 ML IVS PRN (20:58)
[2018-07-17] MEDS ORDERED: ENOXAPARIN SODIUM 40 MG/0.4 ML SYG SUBCU SCH (21:00)
[2018-07-17] MEDS ORDERED: VANCOMYCIN HCL INJ 2,000 MG in SODIUM CHLORIDE 0.9% 500ML 500 ML IVPB ONE (21:00)
[2018-07-17] MEDS ORDERED: INSULIN LISPRO 100 UNITS/ML PEN SUBCU ONE (21:02)
[2018-07-17] MEDS ORDERED: ENOXAPARIN SODIUM 100 MG/ML SYG SUBCU ONE (21:29)
[2018-07-17] MEDS ORDERED: SODIUM CHL 0.9% 50ML MIN-BAG+ 50 ML IVPB ONE (21:29)
[2018-07-17] MEDS ORDERED: ENOXAPARIN SODIUM 40 MG/0.4 ML SYG SUBCU ONE (21:30)
[2018-07-17] MEDS ORDERED: cefTRIAXone SODIUM 1 GM VIAL ONE (21:30)
[2018-07-17] MEDS ORDERED: SODIUM CHLORIDE 0.9% 500ML 500 ML ONE (21:30)
[2018-07-17] MEDS ORDERED: VANCOMYCIN HCL INJ 1,000 MG VIAL IVPB ONE (21:31)
[2018-07-17] MEDS ORDERED: KCL 20 MEQ/NS 1,000 ML IVS ONE (21:33)
[2018-07-17] MEDS ORDERED: INSULIN, REG.(HUMAN) 100 U/ML VIAL IV ONE (21:44)
[2018-07-17] MEDS: SODIUM CHLORIDE 0.9% (FLUSH) 10 ML SYG IV PRN ×2 (22:04→22:15)
[2018-07-17] MEDS: cefTRIAXone SODIUM 1 GM in SODIUM CHL 0.9% 50ML MIN-BAG+ 50 ML IVPB SCH (22:04)
[2018-07-17] MEDS: BIFIDOBACTERIUM INFANTIS 4 MG CAP PO SCH (22:12)
[2018-07-17] MEDS: IV SET AND CAP CHANGE INJ INJ SCH (22:13)
[2018-07-17] MEDS: PANTOPRAZOLE SODIUM IV 40 MG VIAL IV SCH (22:15)
[2018-07-17] MEDS: NYSTATIN POWDER 15GM BTTL TOP SCH (22:16)
[2018-07-17] MEDS: INSULIN DETEMIR 100 UNITS/ML PEN SUBCU SCH (22:20)
[2018-07-17] MEDS: INSULIN LISPRO 100 UNITS/ML PEN SUBCU SCH (22:35)
[2018-07-18] MEDS ORDERED: SODIUM CHLORIDE 0.9% 250ML 250 ML ONE (07:36)
[2018-07-18] MEDS ORDERED: ENOXAPARIN SODIUM 100 MG/ML SYG SUBCU ONE (07:36)
[2018-07-18] MEDS ORDERED: SODIUM CHL 0.9% 50ML MIN-BAG+ 50 ML IVPB ONE ×2 (07:36→19:36)
[2018-07-18] MEDS ORDERED: cefTRIAXone SODIUM 1 GM VIAL ONE ×2 (07:37→19:36)
[2018-07-18] MEDS: INSULIN LISPRO 100 UNITS/ML PEN SUBCU SCH ×6 (07:46→21:08)
[2018-07-18] MEDS ORDERED: VANCOMYCIN PER PHARMACY IVPB SCH (08:00)
[2018-07-18] MEDS ORDERED: KCL 20 MEQ/NS 0 ML IVS ONE (08:04)
[2018-07-18] MEDS: cefTRIAXone SODIUM 1 GM in SODIUM CHL 0.9% 50ML MIN-BAG+ 50 ML IVPB SCH ×2 (08:14→20:18)
[2018-07-18] MEDS ORDERED: VANCOMYCIN HCL INJ 500 MG VIAL ONE (08:21)
[2018-07-18] MEDS ORDERED: VANCOMYCIN HCL INJ 1,000 MG VIAL IVPB ONE ×2 (08:22→21:19)
[2018-07-18] MEDS ORDERED: VANCOMYCIN HCL INJ 1,000 MG, VANCOMYCIN HCL INJ 500 MG in SODIUM CHLORIDE 0.9% 250ML 25... IVPB SCH (09:00)
[2018-07-18] MEDS: ENOXAPARIN SODIUM 100 MG/ML SYG SUBCU SCH ×2 (09:09→20:49)
[2018-07-18] MEDS: NYSTATIN POWDER 15GM BTTL TOP SCH ×4 (09:09→20:49)
[2018-07-18] MEDS: ENOXAPARIN SODIUM 40 MG/0.4 ML SYG SUBCU SCH ×2 (09:09→20:49)
[2018-07-18] MEDS: SODIUM CHLORIDE 0.9% (FLUSH) 10 ML SYG IV SCH ×2 (09:09→20:17)
[2018-07-18] MEDS: BIFIDOBACTERIUM INFANTIS 4 MG CAP PO SCH (09:09)
[2018-07-18] MEDS ORDERED: INSULIN DETEMIR 100 UNITS/ML PEN SUBCU ONE (11:36)
[2018-07-18] MEDS ORDERED: NON-FORMULARY MEDICATION 1 EA MIS (Lisinopril & Hydrochlorothiazi [Lisinopril/Hctz 20-12.5 PO SCH (11:45)
[2018-07-18] MEDS ORDERED: traMADol HCL 50 MG TAB PO PRN (12:00)
[2018-07-18] MEDS: LEVOTHYROXINE SODIUM 0.1 MG TAB PO SCH (12:15)
[2018-07-18] MEDS: OMEPRAZOLE CAP 20 MG CAP PO SCH (12:16)
[2018-07-18] MEDS: LISINOPRIL 10 MG TAB PO SCH ×2 (12:16→20:50)
[2018-07-18] MEDS: hydroCHLOROthiazide 12.5 MG CAP PO SCH ×2 (12:16→20:49)
[2018-07-18] MEDS: DULoxetine HCL 30 MG CAP PO SCH ×2 (12:16→20:49)
[2018-07-18] MEDS: PREGABALIN 75 MG CAP PO SCH ×3 (12:16→20:50)
[2018-07-18] MEDS: metFORMIN HCL 500 MG TAB PO SCH ×2 (12:16→16:58)
[2018-07-18] MEDS: TOLTERODINE TARTRATE ER 4 MG CAP PO SCH ×2 (12:16→12:49)
[2018-07-18] MEDS: PANTOPRAZOLE SODIUM IV 40 MG VIAL IV SCH (20:51)
[2018-07-18] MEDS: SODIUM CHLORIDE 0.9% (FLUSH) 10 ML SYG IV PRN (20:52)
[2018-07-18] MEDS ORDERED: KCL 20MEQ/0.45% NS 1,000 ML IVS PRN (21:05)
[2018-07-18] MEDS ORDERED: VANCOMYCIN HCL INJ 2,000 MG in SODIUM CHLORIDE 0.9% 500ML 500 ML IVPB ONE (21:05)
[2018-07-18] MEDS: INSULIN DETEMIR 100 UNITS/ML PEN SUBCU SCH ×3 (21:09→21:30)
[2018-07-18] MEDS ORDERED: KCL 20MEQ/0.45% NS 1,000 ML IVS ONE (21:18)
[2018-07-18] MEDS ORDERED: SODIUM CHLORIDE 0.9% 500ML 500 ML ONE (21:19)
[2018-07-19] MEDS: LEVOTHYROXINE SODIUM 0.1 MG TAB PO SCH (06:11)
[2018-07-19] MEDS: OMEPRAZOLE CAP 20 MG CAP PO SCH (06:11)
[2018-07-19] MEDS: INSULIN LISPRO 100 UNITS/ML PEN SUBCU SCH ×5 (07:00→20:49)
--- NOTE | 2018-07-19 08:41 | PN ---
SUPERVISING PHYSICIAN: Kavitha Godoy MD DATE: 07/18/18 SUBJECTIVE: The patient is resting in bed with her left leg elevated. She is alert. She denies any nausea, vomiting, diarrhea or constipation, any chest pains or other complaints. She notes her leg is feeling a little bit better today, but continues to hurt. OBJECTIVE: VITAL SIGNS: Temperature 97.4. Pulse 75. Blood pressure 121/69. Respirations 17. Saturation 95% on room air. I&Os show negative balance 239 with 1186 in, 1425 out. She has had one bowel movement. Weight 155.9 kg. GENERAL: The patient is resting comfortably and appears to be in no acute distress. She is alert. CHEST: Lungs clear to auscultation, just slightly diminished towards the bases. Under each breast, she has areas of intertrigo. HEART: Regular rate and rhythm. ABDOMEN: Obese, but soft and nontender. There is a notable excoriated area underneath the panniculus. EXTREMITIES: Right leg without edema. Left leg shows slight improvement with areas that were marked on admission showing the erythema receding slightly and edema has slightly echocardiogram. Pulses remain 2+ bilaterally. There are no obvious areas of abscesses, drainage or other obvious infectious sites. The erythema extends to below the tibial plateau and area has been marked for admission comparison. NEUROLOGIC: Alert and oriented times three. LABORATORY: CBC shows white count 7,400, hemoglobin down to 11.1, hematocrit 32.8, platelet count 97,000. Differential shows a left shift. Chemistries show normal electrolytes. BUN has gone up to 31, creatinine 1.53. Blood sugars have been as low at 229 up to 385 her fingersticks and blood sugars on chemistries have been from 248 up to 424. Urinalysis has shown bulb planter than 1, 000 glucose with 15 ketones. Otherwise, within normal limits. Vancomycin trough was 10.1. MICROBIOLOGY: Blood cultures remain pending. RADIOLOGY: Ultrasound of the left lower extremity is pending. ASSESSMENT: 1. Left lower extremity cellulitis with continued concerns for possible deep venous thrombosis, awaiting ultrasound with the patient on Lovenox 1 mg/kg. 2. Sepsis on admission with noted fever of 102.5, tachycardic with some mild hypertension, felt to be secondary to #1, improving with fluids and antibiotics. 3. Poorly controlled diabetes mellitus, type 2, on both insulin and oral therapy, exacerbated by current cellulitis. 4. Hypertension with some mild hypotension on admission, secondary to #1, showing improvement with fluids. 5. Renal insufficiency, likely secondary to degree of azotemia along with exacerbation from ongoing vancomycin administration. 6. Hypothyroidism on supplementation. 7. Chronic depression and anxiety. 8. Chronic diabetic neuropathies of the lower extremities. 9. Morbid obesity with body mass index of 53.3 on admission. PLAN: The patient will continue on antibiotics with Rocephin and vancomycin per pharmacy protocol. I talked to the pharmacy tonlaquita and we will do another 2 grams of vancomycin and recheck her trough level at 8 o'clock tomorrow. Given that her renal function has increased slightly, I will go ahead and start her on some IV fluids with half normal saline, 20 of potassium run at 110 mL per hour. I have also added long-acting insulin coverage at night with Levemir and continued a.c. coverage along with sliding scale. Again, she is encouraged to keep her leg elevated. I plan to have the Caputo removed tomorrow as she is more stable at this point and can actually get up to use the bedside chair without any difficulty. We will follow her blood cultures closely and continue antibiotic therapy. Until she can transition to potassium management, we will continue to monitor the patient closely and treat appropriately. #[id number] [facility]
[2018-07-19] MEDS: metFORMIN HCL 500 MG TAB PO SCH ×2 (08:42→16:45)
[2018-07-19] MEDS: cefTRIAXone SODIUM 1 GM in SODIUM CHL 0.9% 50ML MIN-BAG+ 50 ML IVPB SCH ×2 (08:51→20:44)
[2018-07-19] MEDS: INSULIN DETEMIR 100 UNITS/ML PEN SUBCU SCH ×2 (10:48→20:45)
[2018-07-19] MEDS: hydroCHLOROthiazide 12.5 MG CAP PO SCH ×2 (10:51→20:45)
[2018-07-19] MEDS: LISINOPRIL 10 MG TAB PO SCH ×2 (10:51→20:44)
[2018-07-19] MEDS: BIFIDOBACTERIUM INFANTIS 4 MG CAP PO SCH (10:51)
[2018-07-19] MEDS: TOLTERODINE TARTRATE ER 4 MG CAP PO SCH (10:51)
[2018-07-19] MEDS: PREGABALIN 75 MG CAP PO SCH ×3 (10:52→20:44)
[2018-07-19] MEDS: DULoxetine HCL 30 MG CAP PO SCH ×2 (10:52→20:45)
[2018-07-19] MEDS: ENOXAPARIN SODIUM 100 MG/ML SYG SUBCU SCH (10:53)
[2018-07-19] MEDS: SODIUM CHLORIDE 0.9% (FLUSH) 10 ML SYG IV SCH ×2 (10:54→22:07)
[2018-07-19] MEDS: NYSTATIN POWDER 15GM BTTL TOP SCH ×4 (10:54→20:47)
[2018-07-19] MEDS: ENOXAPARIN SODIUM 40 MG/0.4 ML SYG SUBCU SCH (10:54)
--- NOTE | 2018-07-19 11:56 | PN ---
SUPERVISING PHYSICIAN: Robert Dooley MD DATE: 07/19/18 SUBJECTIVE: The patient is lying in bed. Her left leg is elevated. She has no complaints of nausea, vomiting, diarrhea, constipation or shortness of breath. OBJECTIVE: VITAL SIGNS: Afebrile. Heart rate 82. Blood pressure 112/61. Respiratory rate 18. O2 saturation 94% on room air. RESPIRATORY: Essentially clear to auscultation bilaterally, somewhat diminished at the bases. CARDIAC: Regular rate and rhythm. GASTROINTESTINAL: Abdomen is obese, rounded, nontender. Bowel sounds are positive. EXTREMITIES: Bilateral pedal pulses are palpable at +2. She does have redness on that left lower extremity that is circumferential in nature. It extends around the calf, but has improved since the markings from yesterday. It is slightly warm to the touch, but there is no fluctuance or drainage noted. It is slightly edematous and erythematous. NEUROLOGIC: Awake, alert and oriented times three. LABORATORY: WBCs are down to 4200, hemoglobin and hematocrit are lower to 10.2 and 31 with platelet count 81. Electrolytes are basically within normal limits. Creatinine has decreased to 1.27. Glucose range has been from 151 to 280. C-reactive protein has gone up to 20.3. Preliminary aerobic bottle from blood culture shows gram positive cocci in chains. Her anaerobic blood culture preliminary is negative to date. All other labs and films have been reviewed via the EMR. ASSESSMENT: 1. Left lower extremity cellulitis with continued concerns for possible deep venous thrombosis, continuing to await ultrasound. The patient has been on Lovenox 1 mg/kg twice daily although I have held it today due to her low platelet count and awaiting results of her Doppler. 2. Sepsis on admission with noted fever of 102.5, tachycardic with some mild hypertension, felt to be secondary to #1, improving with fluids and antibiotics. 3. Poorly controlled diabetes mellitus, type 2, on both insulin and oral therapy, exacerbated by current cellulitis. 4. Hypertension with some mild hypotension on admission, secondary to #1, showing improvement with fluids. 5. Renal insufficiency, likely secondary to degree of azotemia along with exacerbation from ongoing vancomycin administration. 6. Hypothyroidism on supplementation. 7. Chronic depression and anxiety. 8. Chronic diabetic neuropathies of the lower extremities. 9. Morbid obesity with body mass index of 53.3 on admission. PLAN: We will continue present supportive care. I will check her C-reactive protein in several days. Her cellulitis does look better although her CRP did elevate. At this point, I have held her Lovenox until the results of her Doppler study is complete. I will check her lab tomorrow including her platelets. We will continue her antibiotic therapy as previously ordered as she is on vancomycin and her blood cultures are showing gram positive cocci. We will continue to monitor the patient closely and follow as needed. Dr. Dooley is the collaborating physician and available for consultation. #[id number] [facility]
--- NOTE | 2018-07-19 12:05 | US ---
Study: Left lower extremity venous Doppler sonogram. Indication: LLE edema and cellulitis Technical: Multiplanar grayscale and Doppler sonographic images of the deep veins of the left lower extremity obtained. Findings: There is no sonographic evidence of deep venous thrombosis. The deep veins of the left lower extremity compress normally and have appropriate duplex waveforms. Normal flow augmentation is noted as well. Subcutaneous edema left lower leg. Conclusion: 1. No sonographic evidence of deep venous thrombosis of the left lower extremity. Electronically signed by: Lion Obrien MD 07/19/2018 12:03 PM CDT
[2018-07-19] MEDS ORDERED: VANCOMYCIN HCL INJ 1,000 MG VIAL IVPB ONE (16:17)
[2018-07-19] MEDS ORDERED: SODIUM CHLORIDE 0.9% 500ML 500 ML ONE (16:17)
[2018-07-19] MEDS: VANCOMYCIN HCL INJ 2,000 MG in SODIUM CHLORIDE 0.9% 500ML 500 ML IVPB SCH (16:28)
[2018-07-19] MEDS ORDERED: SODIUM CHL 0.9% 50ML MIN-BAG+ 50 ML IVPB ONE (20:37)
[2018-07-19] MEDS ORDERED: cefTRIAXone SODIUM 1 GM VIAL ONE (20:38)
[2018-07-20] MEDS: LEVOTHYROXINE SODIUM 0.1 MG TAB PO SCH (05:54)
[2018-07-20] MEDS: OMEPRAZOLE CAP 20 MG CAP PO SCH (05:55)
[2018-07-20] MEDS: INSULIN LISPRO 100 UNITS/ML PEN SUBCU SCH ×4 (07:08→21:14)
[2018-07-20] MEDS ORDERED: SODIUM CHLORIDE 0.9% 500ML 500 ML ONE ×2 (07:32→20:16)
[2018-07-20] MEDS ORDERED: SODIUM CHL 0.9% 50ML MIN-BAG+ 50 ML IVPB ONE ×2 (07:32→20:15)
[2018-07-20] MEDS ORDERED: cefTRIAXone SODIUM 1 GM VIAL ONE ×2 (07:33→20:16)
[2018-07-20] MEDS ORDERED: VANCOMYCIN HCL INJ 1,000 MG VIAL IVPB ONE ×2 (07:34→20:16)
[2018-07-20] MEDS: metFORMIN HCL 500 MG TAB PO SCH ×2 (07:44→17:11)
[2018-07-20] MEDS: cefTRIAXone SODIUM 1 GM in SODIUM CHL 0.9% 50ML MIN-BAG+ 50 ML IVPB SCH ×2 (08:22→20:48)
[2018-07-20] MEDS: SODIUM CHLORIDE 0.9% (FLUSH) 10 ML SYG IV SCH ×2 (08:24→20:48)
[2018-07-20] MEDS: DULoxetine HCL 30 MG CAP PO SCH ×2 (08:25→20:47)
[2018-07-20] MEDS: BIFIDOBACTERIUM INFANTIS 4 MG CAP PO SCH (08:25)
[2018-07-20] MEDS: PREGABALIN 75 MG CAP PO SCH ×3 (08:25→20:50)
[2018-07-20] MEDS: hydroCHLOROthiazide 12.5 MG CAP PO SCH ×2 (08:25→20:47)
[2018-07-20] MEDS: TOLTERODINE TARTRATE ER 4 MG CAP PO SCH (08:25)
[2018-07-20] MEDS: LISINOPRIL 10 MG TAB PO SCH ×2 (08:25→20:47)
[2018-07-20] MEDS: INSULIN DETEMIR 100 UNITS/ML PEN SUBCU SCH ×2 (08:37→21:15)
[2018-07-20] MEDS: NYSTATIN POWDER 15GM BTTL TOP SCH ×4 (08:37→20:50)
[2018-07-20] MEDS: VANCOMYCIN HCL INJ 2,000 MG in SODIUM CHLORIDE 0.9% 500ML 500 ML IVPB SCH (10:40)
--- NOTE | 2018-07-20 16:17 | PN ---
SUPERVISING PHYSICIAN: Robert Dooley MD DATE: 07/20/18 SUBJECTIVE: The patient is sitting on the side of her bed, although her left leg is elevated on the bed. Her family is at the bedside. She has no complaints of nausea, vomiting, shortness of breath or chest pain. She actually states she feels much better than she has the previous few days. We discussed her discharge planning and we were awaiting her blood culture and sensitivity and to discharge on the appropriate antibiotics. OBJECTIVE: VITAL SIGNS: Afebrile. Heart rate 77. Blood pressure 137/77. Respiratory rate 18. O2 saturation 98% on room air. RESPIRATORY: Somewhat diminished at the bases but otherwise clear to auscultation. CARDIAC: Regular rate and rhythm. GASTROINTESTINAL: Abdomen is soft, nondistended, nontender. Bowel sounds are positive. EXTREMITIES: The area of erythema to her left lower leg has greatly improved from the marked area from admission. There is very minimal redness and no edema or fluctuance or drainage. Her bilateral pedal pulses are palpable at + 2. NEUROLOGIC: Awake, alert and oriented times three. LABORATORY/FILMS: There are no labs or films to report at this time. Continue to await the culture and sensitivity report from her aerobic culture that previously showed gram positive cocci. ASSESSMENT: 1. Left lower extremity cellulitis with continued concerns for possible deep venous thrombosis, continuing to await ultrasound. The patient has been on Lovenox 1 mg/kg twice daily although I have held it today due to her low platelet count and awaiting results of her Doppler. 2. Sepsis on admission with noted fever of 102.5, tachycardic with some mild hypertension, felt to be secondary to #1, improving with fluids and antibiotics. 3. Poorly controlled diabetes mellitus, type 2, on both insulin and oral therapy, exacerbated by current cellulitis. 4. Hypertension with some mild hypotension on admission, secondary to #1, showing improvement with fluids. 5. Renal insufficiency, likely secondary to degree of azotemia along with exacerbation from ongoing vancomycin administration. 6. Hypothyroidism on supplementation. 7. Chronic depression and anxiety. 8. Chronic diabetic neuropathies of the lower extremities. 9. Morbid obesity with body mass index of 53.3 on admission. PLAN: We will continue present supportive care. I will hold on any labs at this time as we are awaiting the culture and sensitivity from her blood culture. It should be back later this evening or early in the morning. She has had cellulitis to her lower leg in the past and due to the recurrence, we would like to have her culture and sensitivity back before we discharge her. Otherwise, plan for discharge tomorrow after that report is in and will continue to monitor closely and follow as needed. Dr. Dooley is the collaborating physician and available for consultation. #[id number] [facility]
[2018-07-20] MEDS: IV SET AND CAP CHANGE INJ INJ SCH (20:50)
[2018-07-21] MEDS: VANCOMYCIN HCL INJ 2,000 MG in SODIUM CHLORIDE 0.9% 500ML 500 ML IVPB SCH ×2 (03:53→22:14)
[2018-07-21] MEDS: LEVOTHYROXINE SODIUM 0.1 MG TAB PO SCH (06:08)
[2018-07-21] MEDS: OMEPRAZOLE CAP 20 MG CAP PO SCH (06:08)
[2018-07-21] MEDS: INSULIN LISPRO 100 UNITS/ML PEN SUBCU SCH ×4 (07:19→21:11)
[2018-07-21] MEDS ORDERED: SODIUM CHL 0.9% 50ML MIN-BAG+ 50 ML IVPB ONE ×2 (07:29→19:41)
[2018-07-21] MEDS ORDERED: cefTRIAXone SODIUM 1 GM VIAL ONE ×2 (07:29→19:42)
[2018-07-21] MEDS: INSULIN DETEMIR 100 UNITS/ML PEN SUBCU SCH ×2 (07:47→21:12)
[2018-07-21] MEDS: metFORMIN HCL 500 MG TAB PO SCH ×2 (07:50→17:35)
[2018-07-21] MEDS: TOLTERODINE TARTRATE ER 4 MG CAP PO SCH (07:53)
[2018-07-21] MEDS: BIFIDOBACTERIUM INFANTIS 4 MG CAP PO SCH (07:53)
[2018-07-21] MEDS: LISINOPRIL 10 MG TAB PO SCH ×2 (07:53→20:42)
[2018-07-21] MEDS: SODIUM CHLORIDE 0.9% (FLUSH) 10 ML SYG IV SCH ×2 (07:54→20:07)
[2018-07-21] MEDS: PREGABALIN 75 MG CAP PO SCH ×3 (07:54→20:42)
[2018-07-21] MEDS: cefTRIAXone SODIUM 1 GM in SODIUM CHL 0.9% 50ML MIN-BAG+ 50 ML IVPB SCH ×2 (07:54→20:06)
[2018-07-21] MEDS: DULoxetine HCL 30 MG CAP PO SCH ×2 (07:54→20:42)
[2018-07-21] MEDS: ACETAMINOPHEN 325 MG TAB PO PRN (08:07)
[2018-07-21] MEDS: hydroCHLOROthiazide 12.5 MG CAP PO SCH ×2 (08:09→20:43)
[2018-07-21] MEDS: NYSTATIN POWDER 15GM BTTL TOP SCH ×4 (08:10→20:42)
[2018-07-21] MEDS: NYSTATIN SUSPENSION 5 ML UD MT SCH ×3 (15:06→20:42)
[2018-07-21] MEDS ORDERED: SODIUM CHLORIDE 0.9% 500ML 500 ML ONE (19:42)
[2018-07-21] MEDS ORDERED: VANCOMYCIN HCL INJ 1,000 MG VIAL IVPB ONE (19:43)
[2018-07-21] MEDS ORDERED: ENOXAPARIN SODIUM 40 MG/0.4 ML SYG SUBCU SCH (21:00)
--- NOTE | 2018-07-22 01:10 | PN ---
DATE: 07/21/18 SUPERVISING PHYSICIAN: Robert Dooley M.D. SUBJECTIVE: The patient is resting in a chair with her leg elevated in another chair. She has had no complaints. Notes that her leg is feeling much better today. Again, discussed the fact that her blood cultures are showing to be positive and continue to wait on sensitivity to ensure correct antibiotic prior to discharge as well as need to plan for either IV or p.o. antibiotics. The patient notes that she has developed some soreness in the back of her throat as well as some ulcerations to her buccal area that started last night. OBJECTIVE: VITAL SIGNS: Afebrile, temperature 98.3, pulse 77, blood pressure 131/64, respirations 16, satting 93% on room air. I's and O's show a positive balance of 1532 with 1882 in, 550 out. She has had a couple of bowel movements. Weight is 157.3 kg. GENERAL: The patient appears to be comfortable in no acute distress. She is alert. CHEST: Lungs are clear to auscultation. HEART: Regular rate and rhythm. ABDOMEN: Soft but obese, non-tender with positive bowel sounds. EXTREMITIES: Left leg continues to show improvement from admission, just a very trace of erythema. No drainage noted. Pulses are 2 + bilaterally. NEUROLOGIC: She is alert and oriented times three. LABORATORY: No new laboratory to report other than blood sugars which have been between 175 and 251. MICROBIOLOGY: Preliminary culture result of the anaerobic bottles show a Group C Strep with sensitivity pending. ASSESSMENT: 1. Left lower extremity cellulitis/erysipelas with no evidence of deep venous thrombus on ultrasound with the patient showing good response with Rocephin and vancomycin awaiting final culture results from blood cultures. 2. Sepsis secondary to bacteremia from #1 with the patient showing a temperature of 102.5 on admission with tachycardia, mild hypertension improving with antibiotics, awaiting final culture results from preliminary culture showing blood cultures positive for Group C Streptococcus. 3. Poorly controlled diabetes mellitus, type 2, on both insulin and oral therapy, exacerbated by current cellulitis. 4. Hypertension, but mild hypotension on admission, secondary to #1, now showing to be back to baseline after fluids and antibiotics. 5. Renal insufficiency due to prerenal azotemia along with some exacerbation from ongoing vancomycin administration showing now to be improving. 6. Hypothyroidism on supplementation. 7. Chronic depression and anxiety. 8. Chronic diabetic neuropathies of the lower extremities. 9. Morbid obesity with body mass index of 53.3 on admission. 10. Thrush secondary to uncontrolled diabetes complicated by multiple antibiotic administration. PLAN: Will continue with vancomycin and Rocephin currently as we await final culture results from the blood cultures that did show Group C Streptococcus. I followed the microbiology today and they assured me that the final results should be available tomorrow at some point. Once we have those back we can further plan on antibiotic therapy versus p.o. versus parenteral coverage. She is having some ulcerations and early signs of thrush, therefore I will start her on some Magic Mouthwash along with some Nystatin swish and swallow. Until we have those results back and can discharge based off current sensitivity reports, will continue to monitor and treat appropriately. #[id number] [facility]
[2018-07-22] MEDS: LEVOTHYROXINE SODIUM 0.1 MG TAB PO SCH (06:08)
[2018-07-22] MEDS: OMEPRAZOLE CAP 20 MG CAP PO SCH (06:08)
[2018-07-22] MEDS: INSULIN LISPRO 100 UNITS/ML PEN SUBCU SCH ×3 (07:12→16:54)
[2018-07-22] MEDS ORDERED: SODIUM CHL 0.9% 50ML MIN-BAG+ 50 ML IVPB ONE ×2 (07:30→19:28)
[2018-07-22] MEDS ORDERED: SODIUM CHLORIDE 0.9% 500ML 0 ML ONE (07:30)
[2018-07-22] MEDS ORDERED: cefTRIAXone SODIUM 1 GM VIAL ONE ×2 (07:31→19:28)
[2018-07-22] MEDS ORDERED: VANCOMYCIN HCL INJ 1,000 MG VIAL IVPB ONE ×2 (07:32→15:14)
[2018-07-22] MEDS: NYSTATIN SUSPENSION 5 ML UD MT SCH ×3 (07:43→16:12)
[2018-07-22] MEDS: LISINOPRIL 10 MG TAB PO SCH (08:27)
[2018-07-22] MEDS: hydroCHLOROthiazide 12.5 MG CAP PO SCH (08:27)
[2018-07-22] MEDS: DULoxetine HCL 30 MG CAP PO SCH (08:27)
[2018-07-22] MEDS: BIFIDOBACTERIUM INFANTIS 4 MG CAP PO SCH (08:28)
[2018-07-22] MEDS: metFORMIN HCL 500 MG TAB PO SCH ×2 (08:28→16:12)
[2018-07-22] MEDS: PREGABALIN 75 MG CAP PO SCH ×2 (08:28→15:16)
[2018-07-22] MEDS: cefTRIAXone SODIUM 1 GM in SODIUM CHL 0.9% 50ML MIN-BAG+ 50 ML IVPB SCH ×2 (08:28→19:34)
[2018-07-22] MEDS: TOLTERODINE TARTRATE ER 4 MG CAP PO SCH (08:29)
[2018-07-22] MEDS: INSULIN DETEMIR 100 UNITS/ML PEN SUBCU SCH (08:29)
[2018-07-22] MEDS: SODIUM CHLORIDE 0.9% (FLUSH) 10 ML SYG IV SCH (08:29)
[2018-07-22] MEDS: ACETAMINOPHEN 325 MG TAB PO PRN (08:44)
[2018-07-22] MEDS ORDERED: LIDOCAINE HCL 2% (MOUTH-THROAT) 15 ML UD PO ONE (08:45)
[2018-07-22] MEDS ORDERED: diphenhydrAMINE HCL 12.5 MG/5 ML UD PO ONE (08:45)
[2018-07-22] MEDS ORDERED: NYSTATIN SUSPENSION 5 ML UD PO ONE (08:45)
[2018-07-22] MEDS: LIDOCAINE VISCOUS 2% 15 ML, diphenhydrAMINE HCL 37.5 MG, NYSTATIN SUSPENSION 15 ML, ALU... PO PRN ×8 (08:45→12:44)
[2018-07-22] MEDS ORDERED: ALUMINUM & MAGNESIUM HYDROXIDE 30 ML UD PO ONE (08:45)
[2018-07-22] MEDS: NYSTATIN POWDER 15GM BTTL TOP SCH ×3 (10:08→16:51)
[2018-07-22] MEDS ORDERED: ALPRAZolam 0.5 MG TAB PO PRN (15:02)
[2018-07-22] MEDS: VANCOMYCIN HCL INJ 2,000 MG in SODIUM CHLORIDE 0.9% 500ML 500 ML IVPB SCH (15:13)
[2018-07-22] MEDS ORDERED: SODIUM CHLORIDE 0.9% 500ML 500 ML ONE (15:14)
[2018-07-22 18:29] VITALS: O2SAT 100
[2018-07-22 21:18] VITALS: BP 137/79; TEMP 97
--- NOTE | 2018-07-30 08:19 | DS ---
SUPERVISING PHYSICIAN: Robert Dooley MD ADMISSION DIAGNOSIS: 1. Left lower extremity cellulitis with concerns for deep venous thrombosis, awaiting ultrasound with the patient on Lovenox 1 mg/kg. 2. Sepsis with a fever of 102.5, tachycardia and mild hypertension, likely secondary to #1, requiring initiation of fluids and antibiotics. 3. Poorly controlled diabetes mellitus, type 2, on both insulin and oral therapy. 4. Hypertension with some mild hypotension secondary to #2 on admission. 5. Hypothyroidism on supplementation. 6. Chronic depression and anxiety. 7. Chronic diabetic neuropathy of lower extremities. 8. Morbid obesity as noted with a body mass index of 53.3. DISCHARGE DIAGNOSIS: 1. Left lower extremity cellulitis with no evidence of deep venous thrombus on ultrasound with the patient showing good response with Rocephin and vancomycin with final blood culture results showing a Group C Streptococcus. 2. Sepsis secondary to bacteremia from #1 with blood cultures positive for Group C Streptococcus. 3. Poorly controlled diabetes mellitus, type 2, on both insulin and oral therapy, exacerbated by ongoing cellulitis. 4. Hypertension with some mild hypotension on admission, but back to baseline, secondary to #1, now stable after fluids and antibiotics. 5. Renal insufficiency due to prerenal azotemia along with some exacerbation from ongoing vancomycin administration, improving and stable. 6. Hypothyroidism on supplementation. 7. Chronic depression and anxiety. 8. Chronic diabetic neuropathies of the lower extremities. 9. Morbid obesity with body mass index of 53.3 on admission. 10. Thrush secondary to uncontrolled diabetes complicated by multiple antibiotic administration. ADMITTING PHYSICIAN: Kavitha Godoy MD ATTENDING: Juan Arnold NP REASON FOR HOSPITALIZATION: Ms. Mcleod is a 62-year-old female patient with a history of diabetes and obesity. She presented to the Emergency Room on 07/17/18 late night after she started having some generalized pain, chills and noticed that her left leg was swollen, hot and painful. She reported she was in her usual health within the prior 24 hours, but has had some issues with the left leg swelling at times but has not had any significant pain or redness. On initial presentation to the Emergency Room, she was febrile with a temperature of 102.5 with a heart rate of 113, mildly hypotensive with a blood pressure of 107/47. Initial laboratory studies showed a normal white count but a left shift. Her chemistries were significant for a mild hyponatremia as well as increased renal function with a creatinine of 1.40 and BUN of 31. Her blood sugar was over 424 and lactic acid was at 2.6. Liver functions were all within normal limits. Dr. Franz, Emergency Room physician, requested the patient be admitted with concerns for sepsis secondary to left lower extremity cellulitis requiring initiation of parenteral antibiotics and further evaluation. In the Emergency Room, she was started on antibiotics initially with Zosyn. She was given two liters of fluid. She was admitted to the medical/surgical floor in stable condition. HOSPITAL COURSE: Ms. Mcleod was admitted on 07/17/18 for sepsis secondary to cellulitis. She was initiated on sepsis protocol and given IV fluids and antibiotics to include initially Zosyn which was followed with Rocephin and vancomycin. She was supported with IV fluids. Electrolytes were balanced. Her temperature was controlled. Her lactic acid normalized. She did show positive blood cultures with Group C Streptococcus. Based on that sensitivity, ceftriaxone and vancomycin were stopped and she was continued on Rocephin. The patient's vital signs were stable. Her laboratory studies showed her white count was down to 3.7 at discharge with differential within normal limits. Hemoglobin and hematocrit were stable at 10.2 and 30.8. Chemistries had shown normalization of her electrolytes with creatinine down to 1.12, blood sugars were maintained between 158 and 280. It was felt that she had progressed clinically well enough to be discharged on continued outpatient treatment measures with continued antibiotics for treatment of bacteremia. Prior to discharge, arrangements were made for her to have continued outpatient infusions with antibiotic through Outpatient Services with Rocephin 2 grams q.24h. after consultation with Dr. Layton, Infectious Disease . On the day of discharge, she was to have a PICC line place prior to initiation of continued treatment. Discharge condition was stable and improved. DISPOSITION: Discharge home to continue outpatient management. DISCHARGE MEDICATIONS: 1. Align 4 mg daily. 2. Outpatient infusions with Rocephin 2 grams q.24h. for at least 2 weeks. INSTRUCTIONS: She was to followup with Dr. Lorenzo the following week. She was to followup with Dr. Layton in [place]. She will need an echocardiogram to rule out any endocarditis for further decision of length of treatment. Should she show negative for endocarditis, treatment course would be 2 weeks. If positive, she should be referred to Dr. Layton for further treatment plans. Diet was diabetic diet as tolerated. Activity as tolerated. Keep foot elevated when possible. Resume all medications prior to hospitalization as directed. #[id number] [facility]
== END 2018-07-22 20:10 | disposition home or self-care (01) | DRG 872 ==
LOC: ER 17:22 → MS 19:44
PROVIDERS: ADMIT Nurse Practitioner Family; ATTEND Nurse Practitioner Family
DX: A41.9 Sepsis, unspecified organism (principal); E87.1 Hypo-osmolality and hyponatremia; L03.116 Cellulitis of left lower limb; Z68.43 Body mass index [BMI] 50.0-59.9, adult; E11.40 Type 2 diabetes mellitus with diabetic neuropathy, unspecified; Z79.4 Long term (current) use of insulin; Z79.84 Long term (current) use of oral hypoglycemic drugs; I10 Essential (primary) hypertension; E03.9 Hypothyroidism, unspecified; F32.9 Major depressive disorder, single episode, unspecified; F41.9 Anxiety disorder, unspecified; E66.01 Morbid (severe) obesity due to excess calories; H26.9 Unspecified cataract; G89.29 Other chronic pain; M54.9 Dorsalgia, unspecified; E11.65 Type 2 diabetes mellitus with hyperglycemia; N28.9 Disorder of kidney and ureter, unspecified; I95.9 Hypotension, unspecified

== ENCOUNTER 2018-07-23 21:44 | Emergency (ER) | payer OTHER ==
--- NOTE | 2018-07-23 22:09 | ED.PDOC ---
History of Present Illness - General Chief Complaint: General Stated Complaint: Bleeding at PICC line site Time Seen by Provider: 07/23/18 22:06 Source: patient Exam Limitations: no limitations - History of Present Illness Timing/Duration: 1 hour Severity: mild Improving Factors: nothing Worsening Factors: nothing Associated Symptoms: other - had bleeding at PICC site. Denies any trauma to area or traction of line Allergies/Adverse Reactions: Allergies anxiety medication Allergy (Uncoded 07/17/18 23:05) does not know name of med. Reports medications that she was given had opposite effect. medication made anxiety worse. Home Medications: Ambulatory Orders Acetaminophen W/ Codeine [Tylenol W/ CODEINE #3] 1 ea PO PRN 07/17/18 Clonazepam 1 - 2 mg PO PRN 07/17/18 Duloxetine HCl 60 mg PO BID 07/17/18 Fesoterodine Fumarate [Toviaz] 4 mg PO DAILY 07/17/18 Levothyroxine Sodium 300 mcg PO DAILY 07/17/18 Lisinopril & Hydrochlorothiazi [Lisinopril/Hctz 20-12.5 mg] 1 tab PO BID Metformin HCl 500 mg PO BID 07/17/18 Omeprazole [Omeprazole Dr] 20 mg PO DAILY 07/17/18 Pregabalin [Lyrica] 75 mg PO TID 07/17/18 Tramadol HCl 50 mg PO PRN 07/17/18 Bifidobacterium Infantis [Align] 4 mg PO DAILY cap 07/22/18 Review of Systems - Review of Systems Constitutional: States: no symptoms reported EENTM: States: no symptoms reported Skin: States: no symptoms reported, other - small amount blood at PICC site. No active bleeding present Past Medical History (General) - Patient Medical History Hx Seizures: No Hx Stroke: No Hx Dementia: No Hx Asthma: No Hx of COPD: Yes Hx Cardiac Disorders: Yes Hx Congestive Heart Failure: No Hx Pacemaker: No Hx Hypertension: Yes Hx Thyroid Disease: Yes Hx Diabetes: Yes Hx Gastroesophageal Reflux: Yes Hx Renal Disease: Yes Hx Cancer: No Hx of HIV: No Hx Hepatitis C: No Hx MRSA: No MRSA Source:: Wound - Vaccination History Hx Tetanus, Diphtheria Vaccination: No Hx Influenza Vaccination: No Hx Pneumococcal Vaccination: No - Social History Hx Tobacco Use: No Hx Chewing Tobacco Use: No Hx Alcohol Use: No Hx Substance Use: No Hx Substance Use Treatment: No Hx Depression: No Hx Physical Abuse: No Hx Emotional Abuse: No Hx Suspected Abuse: No - Female History Patient : No Family Medical History - Family History Mother Living Status: Still Living Hx Family Diabetes: Yes Father Living Status: Hx Cardiac Disease: Yes Hx Family Diabetes: Yes Physical Exam - Physical Exam General Appearance: Alert, Anxious Extremity: normal range of motion, non-tender, other - PICC in R medial upper arm with bandage over site Neurologic: alert, normal mood/affect, oriented x 3 Progress - EKG/XRAY/CT XRAY: chest - shows PICC line is in superior vena cava Departure - Departure Clinical Impression: Bleeding from PICC line Qualifiers: Encounter type: initial encounter Qualified Code(s): T82.838A - Hemorrhage due to vascular prosthetic devices, implants and grafts, initial encounter Disposition: Discharge to Home or Self Care Departure Forms: ED Discharge - Pt. Copy, Patient Portal Self Enrollment Home Medications: Ambulatory Orders Acetaminophen W/ Codeine [Tylenol W/ CODEINE #3] 1 ea PO PRN 07/17/18 Clonazepam 1 - 2 mg PO PRN 07/17/18 Duloxetine HCl 60 mg PO BID 07/17/18 Fesoterodine Fumarate [Toviaz] 4 mg PO DAILY 07/17/18 Levothyroxine Sodium 300 mcg PO DAILY 07/17/18 Lisinopril & Hydrochlorothiazi [Lisinopril/Hctz 20-12.5 mg] 1 tab PO BID Metformin HCl 500 mg PO BID 07/17/18 Omeprazole [Omeprazole Dr] 20 mg PO DAILY 07/17/18 Pregabalin [Lyrica] 75 mg PO TID 07/17/18 Tramadol HCl 50 mg PO PRN 07/17/18 Bifidobacterium Infantis [Align] 4 mg PO DAILY cap 07/22/18
[2018-07-23 22:34] VITALS: TEMP 98.4
--- NOTE | 2018-07-23 22:50 | RAD ---
EXAM: Chest,1 View CLINICAL INDICATION: 52-year-old female. PICC line position. TECHNIQUE: Single view, AP portable chest was obtained. COMPARISON: Single view chest 07/15/2018.. FINDINGS: Unremarkable cardiac and mediastinal silhouette. Heart size is normal. RIGHT PICC line is identified terminating over the projection of the RIGHT atrium. Lungs are clear without focal opacity, pneumothorax or pleural effusions. The visualized bones are within normal limits. IMPRESSION: No acute cardiopulmonary abnormalities. Electronically signed by: Bea Brambila MD 07/23/2018 10:48 PM CDT
[2018-07-23 23:05] VITALS: BP 139/70; O2SAT 99
== END 2018-07-23 23:06 | disposition home or self-care (01) ==
LOC: ER 21:44
DX: T82.838A Hemorrhage due to vascular prosthetic devices, implants and grafts, initial encounter (principal); E11.22 Type 2 diabetes mellitus with diabetic chronic kidney disease; I12.9 Hypertensive chronic kidney disease with stage 1 through stage 4 chronic kidney disease, or unspecified chronic kidney disease; N18.9 Chronic kidney disease, unspecified; J44.9 Chronic obstructive pulmonary disease, unspecified; E07.9 Disorder of thyroid, unspecified; K21.9 Gastro-esophageal reflux disease without esophagitis; Z79.899 Other long term (current) drug therapy; Z88.8 Allergy status to other drugs, medicaments and biological substances

== ENCOUNTER → 2018-07-30 | Outpatient (CLI) | payer OTHER ==
--- NOTE | 2018-07-30 11:43 | RAD ---
EXAM DESCRIPTION: Knee,Right 2 or More Views CLINICAL HISTORY: PAIN IN RIGHT KNEE COMPARISON: None. TECHNIQUE: 2 views right FINDINGS: Loss of medial joint space is observed. Medial tibial and femoral osteophyte formation is observed. Chondrocalcinosis is observed in the lateral joint compartment. Patellofemoral joint arthritis is observed with spurring. A possible calcified loose body is observed posterior to the joint. A joint effusion is seen. IMPRESSION: Tricompartmental joint degenerative changes are observed most pronounced the medial joint compartment. Electronically signed by: Greg Tabares MD 07/30/2018 11:42 AM CDT
== END ==
LOC: YCFC.O 09:23
PROVIDERS: ATTEND Family Medicine
DX: M25.561 Pain in right knee (principal); I10 Essential (primary) hypertension; E03.9 Hypothyroidism, unspecified; E11.9 Type 2 diabetes mellitus without complications; D64.9 Anemia, unspecified; E78.5 Hyperlipidemia, unspecified

== ENCOUNTER → 2018-11-08 | Outpatient (CLI) | payer OTHER | LOC: LAB.O 15:05 | PROVIDERS: ATTEND Family Medicine | DX: E11.9 Type 2 diabetes mellitus without complications (principal); I10 Essential (primary) hypertension ==

== ENCOUNTER → 2019-02-01 | Outpatient (CLI) | payer OTHER | LOC: LAB.O 12:00 | PROVIDERS: ATTEND Family Medicine | DX: E11.9 Type 2 diabetes mellitus without complications (principal); I10 Essential (primary) hypertension; E03.9 Hypothyroidism, unspecified ==

== ENCOUNTER 2019-04-23 13:08 | Emergency (ER) | payer OTHER ==
[2019-04-23] MEDS ORDERED: SODIUM CHLORIDE 0.9% 1000ML 2,000 ML IVS ONE (13:26)
--- NOTE | 2019-04-23 13:42 | ED.PDOC ---
History of Present Illness - General Chief Complaint: Diabetic Complaint Stated Complaint: elevated blood sugar Time Seen by Provider: 04/23/19 13:24 Source: patient Exam Limitations: no limitations - History of Present Illness Initial Comments: PT C/O NOT FEELING WELL. PT STATES SHE HAS BEEN OUT OF HER DIABETIC MEDICATION. PT STATES SHE THINKS HER BS IS ELEVATED. C/O LBP WHICH IS CHRONIC BUT SOME WORSE. Severity: moderate Improving Factors: nothing Worsening Factors: nothing Allergies/Adverse Reactions: Allergies anxiety medication Allergy (Uncoded 07/17/18 23:05) does not know name of med. Reports medications that she was given had opposite effect. medication made anxiety worse. Home Medications: Ambulatory Orders Clonazepam 0.5 - 1 mg PO Q12H PRN 07/17/18 Duloxetine HCl 60 mg PO BID 07/17/18 Fesoterodine Fumarate [Toviaz] 4 mg PO DAILY 07/17/18 Levothyroxine Sodium 50 mcg PO DAILY 07/17/18 Lisinopril & Hydrochlorothiazi [Lisinopril/Hctz 20-12.5 mg] 1 tab PO BID 07/17/18 Metformin HCl [Metformin Hydrochloride] 500 mg PO BID 07/17/18 Omeprazole [Omeprazole Dr] 20 mg PO DAILY 07/17/18 Pregabalin [Lyrica] 75 mg PO TID 07/17/18 Empagliflozin [Jardiance] 25 mg PO DAILY 04/23/19 Insulin Degludec [Tresiba Flextouch] 80 unit SC DAILY 04/23/19 Review of Systems - Review of Systems Constitutional: Denies: chills, fever EENTM: States: no symptoms reported Respiratory: 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 Denies: short of breath, wheezing Cardiology: Denies: chest pain, palpitations, syncope Gastrointestinal/Abdominal: Denies: abdominal pain, nausea, vomiting Genitourinary: Denies: dysuria, hematuria Musculoskeletal: States: back pain. Denies: neck pain Skin: States: other - SWEATING TODAY Neurological: States: no symptoms reported Endocrine: States: excessive sweating Hematologic/Lymphatic: States: no symptoms reported Past Medical History (General) - Patient Medical History Hx Seizures: No Hx Stroke: No Hx Dementia: No Hx Asthma: No Hx of COPD: Yes Hx Cardiac Disorders: Yes Hx Congestive Heart Failure: No Hx Pacemaker: No Hx Hypertension: Yes Hx Thyroid Disease: Yes Hx Diabetes: Yes Hx Gastroesophageal Reflux: Yes Hx Renal Disease: Yes Hx Cancer: No Hx of HIV: No Hx Hepatitis C: No Hx MRSA: No MRSA Source:: Wound Surgical History: Hysterectomy - Vaccination History Hx Tetanus, Diphtheria Vaccination: No Hx Influenza Vaccination: No Hx Pneumococcal Vaccination: No - Social History Hx Tobacco Use: No Hx Chewing Tobacco Use: No Hx Alcohol Use: No Hx Substance Use: No Hx Substance Use Treatment: No Hx Depression: Yes Hx Physical Abuse: No Hx Emotional Abuse: No Hx Suspected Abuse: No - Female History Patient : No Family Medical History - Family History Mother Living Status: Still Living Hx Family Diabetes: Yes Father Living Status: Hx Cardiac Disease: Yes Hx Family Diabetes: Yes Physical Exam - Physical Exam General Appearance: Alert, No apparent distress, Obese Eye Exam: bilateral normal Ears, Nose, Throat: hearing grossly normal, other - DRY MM Neck: non-tender, full range of motion, supple Respiratory: lungs clear, normal breath sounds Cardiovascular/Chest: regular rate, rhythm, no murmur Gastrointestinal/Abdominal: normal bowel sounds, non tender, soft, no organomegaly, other - MORBIDLY OBESE Back Exam: normal inspection, no CVA tenderness, other - MILD TTP LOWER LUMBAR SPINE Extremity: normal range of motion, non-tender, normal inspection Neurologic: no motor/sensory deficits, alert, normal mood/affect Skin Exam: normal color, other - SLIGHTLY DIAPHORETIC Lymphatic: no adenopathy Progress - Progress Progress: 04/23/19 16:38 PT FEELS BETTER. VSS. BS IMPROVING. PT HAS HER MEDICATION AND REGULAR INSULIN WITH SLIDING SCALE AT HOME. SHE ASKS NOW ABOUT A LESION ON HER R MIDDLE FINGER. HAS BEEN PRESENT FOR A MONTH BUT SHE CANNOT GET IT TO HEAL. SHE HAS A LINEAR OPEN LESION THAT FOLLOWS THE DORSAL ASPECT OF THE DIP JT. SHE STATES IT OPENS WHEN SHE FLEXES HER FINGER. FAIRLY SUPERFICIAL. NO EVIDENCE OF SECONDARY INFECTION. SHE'S BEEN APPLYING ABX OINTMENT AND SILVADENE CREAM. ADVISED HER TO STOP THAT AND USE SOAP AND WATER, WILL COVER WITH A DRY DRESSING AND SPLINT IN EXTENSION. ADVISED BETTER GLYCEMIC CONTROL. FOLLOW UP THURSDAY WITH HER PCP. - EKG/XRAY/CT EKG: Sinus - RATE 80, LAD, NL INTERVAL, NO ST T WAVE CHANGES, NAIP, Unchanged from - 05/07/18 XRAY: chest - CARDIOMEGALY, NO ACUTE INFILTRATE Departure - Departure Clinical Impression: Diabetes 1.5, managed as type 2, Chronic wound of extremity Hyperglycemia due to type 2 diabetes mellitus Qualifiers: Diabetes mellitus jail insulin use: with jail use Qualified Code(s): E11.65 - Type 2 diabetes mellitus with hyperglycemia; Z79.4 - [facility] (current) use of insulin Time of Disposition: 16:50 Disposition: Discharge to Home or Self Care Condition: Fair Departure Forms: ED Discharge - Pt. Copy, Patient Portal Self Enrollment Instructions: DI for Diabetes Type 2 Referrals: Anthony Lorenzo MD [Primary Care Provider] - 04/25/19 Home Medications: Ambulatory Orders Clonazepam 0.5 - 1 mg PO Q12H PRN 07/17/18 Duloxetine HCl 60 mg PO BID 07/17/18 Fesoterodine Fumarate [Toviaz] 4 mg PO DAILY 07/17/18 Levothyroxine Sodium 50 mcg PO DAILY 07/17/18 Lisinopril & Hydrochlorothiazi [Lisinopril/Hctz 20-12.5 mg] 1 tab PO BID 07/17/18 Metformin HCl [Metformin Hydrochloride] 500 mg PO BID 07/17/18 Omeprazole [Omeprazole Dr] 20 mg PO DAILY 07/17/18 Pregabalin [Lyrica] 75 mg PO TID 07/17/18 Empagliflozin [Jardiance] 25 mg PO DAILY 04/23/19 Insulin Degludec [Tresiba Flextouch] 80 unit SC DAILY 04/23/19 Additional Instructions: KEEP FINGER CLEAN WITH SOAP AND WATER. COVER WITH DRY DRESSING AND FOLLOW UP WITH YOUR DOCTOR THURSDAY
[2019-04-23] MEDS ORDERED: INSULIN, REG.(HUMAN) 100 U/ML VIAL SUBCU ONE (14:05)
--- NOTE | 2019-04-23 15:27 | RAD ---
EXAM DESCRIPTION: Chest,1 View CLINICAL HISTORY: 63 years Female COUGH, HYPERGLYCEMIA COMPARISON: None TECHNIQUE: AP view of the chest was obtained. FINDINGS: Cardiac silhouette is enlarged. Central vessels are mildly increased. Marked overlying soft tissue. Airspace opacities lower lungs bilaterally unchanged. No effusions bilaterally. No pneumothorax. IMPRESSION: Enlarged heart with no evidence for congestive heart failure. No definite infiltrates seen Electronically signed by: Faye Hernandez MD 04/23/2019 3:25 PM CDT
[2019-04-23] MEDS ORDERED: CHLORHEXIDINE GLUCONATE 4 % 15 ML UD TOP ONE (16:33)
[2019-04-23 17:12] VITALS: BP 136/80; TEMP 96.8; O2SAT 97
== END 2019-04-23 17:12 | disposition home or self-care (01) ==
LOC: ER 13:08
DX: E11.65 Type 2 diabetes mellitus with hyperglycemia (principal); S60.942A Unspecified superficial injury of right middle finger, initial encounter; N18.9 Chronic kidney disease, unspecified; I12.9 Hypertensive chronic kidney disease with stage 1 through stage 4 chronic kidney disease, or unspecified chronic kidney disease; E11.22 Type 2 diabetes mellitus with diabetic chronic kidney disease; E66.01 Morbid (severe) obesity due to excess calories; I51.9 Heart disease, unspecified; J44.9 Chronic obstructive pulmonary disease, unspecified; E07.9 Disorder of thyroid, unspecified; K21.9 Gastro-esophageal reflux disease without esophagitis; Z79.4 Long term (current) use of insulin; Z79.899 Other long term (current) drug therapy; Z88.8 Allergy status to other drugs, medicaments and biological substances; X58.XXXA Exposure to other specified factors, initial encounter; Y92.9 Unspecified place or not applicable

== ENCOUNTER → 2019-05-30 | Outpatient (CLI) | payer OTHER | LOC: LAB.O 13:31 | PROVIDERS: ATTEND Family Medicine | DX: I10 Essential (primary) hypertension (principal); E03.9 Hypothyroidism, unspecified; E11.9 Type 2 diabetes mellitus without complications ==

== ENCOUNTER 2019-06-09 19:02 | Emergency (ER) | payer OTHER ==
[2019-06-09] MEDS ORDERED: ASPIRIN (CHEWABLE) 81 MG TAB ONE (19:15)
[2019-06-09] MEDS ORDERED: NITROGLYCERIN 0.4 MG 25 EA TAB SL ONE ×3 (19:15→19:35)
[2019-06-09] MEDS ORDERED: ASPIRIN (CHEWABLE) 81 MG TAB PO ONE (19:20)
--- NOTE | 2019-06-09 21:02 | RAD ---
EXAM: XR Chest, 1 View CLINICAL HISTORY: chest pain and short of breath TECHNIQUE: Frontal view of the chest. COMPARISON: 04/23/2019. FINDINGS: Limitations: None. Lungs: Unremarkable. No consolidation. Pleural space: Unremarkable. No pneumothorax. Heart: Unremarkable. No cardiomegaly. Mediastinum: Unremarkable. Bones/joints: Unremarkable. IMPRESSION: No abnormality noted. Electronically signed by: Elsie Bang MD 06/09/2019 9:00 PM CDT
[2019-06-09] MEDS ORDERED: SODIUM CHLORIDE 0.9% 500ML 500 ML IVS ONE (21:07)
--- NOTE | 2019-06-09 21:11 | ED.PDOC ---
History of Present Illness - General Chief Complaint: Respiratory Problem Stated Complaint: sob/chest pressure Time Seen by Provider: 06/09/19 19:35 Source: patient Exam Limitations: no limitations - History of Present Illness Initial Comments: sergey Mcleod 63 y/o female stated that she felt her heart racing and SOB since yesterday after her daughter dad yesterday and had feeling of chest heaviness today.Also had more pain/redness on his left leg today and noted skin ulceration and felt hot. Timing/Duration: 24 hours Severity: moderate Activities at Onset: emotional stress Possible Cause: occasional episodes Improving Factors: nothing Worsening Factors: nothing Associated Symptoms: other - see hpi Respiratory Risk Factors: no cause identified Allergies/Adverse Reactions: Allergies anxiety medication Allergy (Uncoded 07/17/18 23:05) does not know name of med. Reports medications that she was given had opposite effect. medication made anxiety worse. Home Medications: Ambulatory Orders Clonazepam 0.5 - 1 mg PO Q12H PRN 07/17/18 Duloxetine HCl 60 mg PO BID 07/17/18 Fesoterodine Fumarate [Toviaz] 4 mg PO DAILY 07/17/18 Levothyroxine Sodium 50 mcg PO DAILY 07/17/18 Lisinopril & Hydrochlorothiazi [Lisinopril/Hctz 20-12.5 mg] 1 tab PO BID 07/17/18 Metformin HCl [Metformin Hydrochloride] 500 mg PO BID 07/17/18 Omeprazole [Omeprazole Dr] 20 mg PO DAILY 07/17/18 Pregabalin [Lyrica] 75 mg PO TID 07/17/18 Empagliflozin [Jardiance] 25 mg PO DAILY 04/23/19 Insulin Degludec [Tresiba Flextouch] 80 unit SC DAILY 04/23/19 Clindamycin HCl 300 mg PO TID 10 Days #60 cap 06/09/19 Mupirocin 2 % Oint [Bactroban Oint] 22 gm TOP BID 10 Days #1 tube 06/09/19 Review of Systems - Review of Systems Constitutional: States: no symptoms reported EENTM: States: no symptoms reported Respiratory: States: see HPI Cardiology: States: see HPI Gastrointestinal/Abdominal: States: no symptoms reported Genitourinary: States: no symptoms reported Musculoskeletal: States: see HPI, muscle pain Skin: States: see HPI Neurological: States: other - neuropathy legs All other Systems: Reviewed and Negative, No Change from Baseline Past Medical History (General) - Patient Medical History Hx Seizures: No Hx Stroke: No Hx Dementia: No Hx Asthma: No Hx of COPD: Yes Hx Cardiac Disorders: Yes Hx Congestive Heart Failure: No Hx Pacemaker: No Hx Hypertension: Yes Hx Thyroid Disease: Yes Hx Diabetes: Yes Hx Gastroesophageal Reflux: Yes Hx Renal Disease: Yes Hx Cancer: No Hx of HIV: No Hx Hepatitis C: No Hx MRSA: No MRSA Source:: Wound Surgical History: appendectomy, other - ;hernia repair - Vaccination History Hx Tetanus, Diphtheria Vaccination: No Hx Influenza Vaccination: No Hx Pneumococcal Vaccination: No - Social History Hx Tobacco Use: No Hx Chewing Tobacco Use: No Hx Alcohol Use: No Hx Substance Use: No Hx Substance Use Treatment: No Hx Depression: Yes Hx Physical Abuse: No Hx Emotional Abuse: No Hx Suspected Abuse: No - Female History Patient : No Family Medical History - Family History Mother Living Status: Still Living Hx Family Diabetes: Yes Father Living Status: Hx Cardiac Disease: Yes Hx Family Diabetes: Yes Physical Exam - Physical Exam General Appearance: Alert, Comfortable, No apparent distress Eyes, Ears, Nose, Throat Exam: normal ENT inspection Neck: supple, normal inspection Respiratory: chest non-tender, lungs clear, normal breath sounds Cardiovascular/Chest: normal peripheral pulses, regular rate, rhythm, no murmur Peripheral Pulses: radial,right: 2+, radial,left: 2+ Gastrointestinal/Abdominal: non tender, soft, no organomegaly Extremity: no calf tenderness, inflammation - left leg-red and tender with skin ulceration, pedal edema - +1 Neurologic: alert, oriented x 3 Skin Exam: normal color, warm/dry Progress - Progress Progress: 06/09/19 21:20 Vital Signs - 8 hr 06/09/19 06/09/19 19:02 19:05 Temperature 99.9 F H Pulse Rate [ 86 83 left finger] Respiratory 20 16 Rate Blood Pressure 123/84 [Left Arm] O2 Sat by Pulse 99 Oximetry 06/09/19 23:13 Patient felt better since arrival at ER she was sound asleep - Results/Orders Results/Orders: Vital Signs - 24 hr 06/09/19 06/09/19 19:02 19:05 Temperature 99.9 F H Pulse Rate [ 86 83 left finger] Respiratory 20 16 Rate Blood Pressure 123/84 [Left Arm] O2 Sat by Pulse 99 Oximetry 06/09/19 20:00 EKG STAT 06/09/19 21:06 URINALYSIS Stat 06/09/19 22:27 Clindamycin IV 900Mg [Cleocin IV 900mg] 900 mg Premix Bag 1 bag IVPB ONCE Laboratory Results - last 24 hr 06/09/19 06/09/19 06/09/19 15:18 21:24 22:35 WBC 9.7 RBC 4.02 L Hgb 11.7 L Hct 35.6 L MCV 88.5 MCH 29.2 MCHC 33.0 RDW 15.6 H Plt Count 178 MPV 9.9 Absolute Neuts (auto) 7.60 H Absolute Lymphs (auto) 1.20 Absolute Monos (auto) 0.80 Absolute Eos (auto) 0.10 Absolute Basos (auto) 0.10 Neutrophils % 78.1 H Lymphocytes % 12.4 L Monocytes % 8.0 Eosinophils % 0.9 L Basophils % 0.6 PT 9.8 INR 0.98 PTT (SP) 27.1 Sodium 136 Potassium 4.3 Chloride 103 Carbon Dioxide 21 Anion Gap 16.3 BUN 38 H Creatinine 1.54 H BUN/Creatinine Ratio 24.7 H Random Glucose 207 H Serum Osmolality 287.0 Lactic Acid 1.2 Calcium 9.0 Magnesium 2.4 Total Bilirubin 0.5 Direct Bilirubin 0.1 Indirect Bilirubin 0.4 AST 18 ALT 12 Alkaline Phosphatase 68 Creatine Kinase 207 H* CK-MB (CK-2) 2.9 CK-MB (CK-2) % Not Reportable Troponin I 0.02 < 0.02 Serum Total Protein 7.5 Albumin 3.8 discuss all test results with patient and her son - EKG/XRAY/CT EKG: Sinus, no ST T wave changes Comments: HR-85;low voltage QRS-patient obese XRAY: chest - no abnormality noted Departure - Departure Clinical Impression: Cellulitis of left leg without foot, Sensation of chest pressure Time of Disposition: 23:14 Disposition: Discharge to Home or Self Care Condition: Fair Departure Forms: ED Discharge - Pt. Copy, Patient Portal Self Enrollment Instructions: Cellulitis (Skin Infection), Adult (DC) Referrals: Anthony Lorenzo MD [Primary Care Provider] - 1-2 Weeks Prescriptions: Clindamycin HCl 300 mg PO TID 10 Days #60 cap Mupirocin 2 % Oint [Bactroban Oint] 22 gm TOP BID 10 Days #1 tube Home Medications: Ambulatory Orders Clonazepam 0.5 - 1 mg PO Q12H PRN 07/17/18 Duloxetine HCl 60 mg PO BID 07/17/18 Fesoterodine Fumarate [Toviaz] 4 mg PO DAILY 07/17/18 Levothyroxine Sodium 50 mcg PO DAILY 07/17/18 Lisinopril & Hydrochlorothiazi [Lisinopril/Hctz 20-12.5 mg] 1 tab PO BID 07/17/18 Metformin HCl [Metformin Hydrochloride] 500 mg PO BID 07/17/18 Omeprazole [Omeprazole Dr] 20 mg PO DAILY 07/17/18 Pregabalin [Lyrica] 75 mg PO TID 07/17/18 Empagliflozin [Jardiance] 25 mg PO DAILY 04/23/19 Insulin Degludec [Tresiba Flextouch] 80 unit SC DAILY 04/23/19 Clindamycin HCl 300 mg PO TID 10 Days #60 cap 06/09/19 Mupirocin 2 % Oint [Bactroban Oint] 22 gm TOP BID 10 Days #1 tube 06/09/19 Additional Instructions: Return to Emergency room as needed;Continue with all home medications;Follow up with primary Md 13 June 2019 for recheck
[2019-06-09] MEDS ORDERED: SODIUM CHLORIDE 0.9% 1000ML 1,000 ML ONE (21:52)
[2019-06-09] MEDS ORDERED: CLINDAMYCIN IV 900MG 900 MG in PREMIX BAG 1 BAG IVPB ONE (22:27)
[2019-06-09] MEDS ORDERED: CLINDAMYCIN IV 900MG 50 ML IVPB ONE (23:01)
[2019-06-10 00:50] VITALS: O2SAT 98
[2019-06-10 00:53] VITALS: BP 139/83; TEMP 98.5
== END 2019-06-10 00:35 | disposition home or self-care (01) ==
LOC: ER 19:02
DX: R07.89 Other chest pain (principal); L03.116 Cellulitis of left lower limb; J44.9 Chronic obstructive pulmonary disease, unspecified; F32.9 Major depressive disorder, single episode, unspecified; I51.9 Heart disease, unspecified; E07.9 Disorder of thyroid, unspecified; K21.9 Gastro-esophageal reflux disease without esophagitis; N18.9 Chronic kidney disease, unspecified; E11.22 Type 2 diabetes mellitus with diabetic chronic kidney disease; I12.9 Hypertensive chronic kidney disease with stage 1 through stage 4 chronic kidney disease, or unspecified chronic kidney disease; Z79.4 Long term (current) use of insulin; Z79.899 Other long term (current) drug therapy; Z88.8 Allergy status to other drugs, medicaments and biological substances
CPT/HCPCS: 36415; 71045; 80048; 80076; 82550; 82553; 83605; 84484; 85025; 85610; 85730; 93005; J3490; J7030

== ENCOUNTER → 2019-06-29 | Outpatient (CLI) | payer OTHER ==
--- NOTE | 2019-06-29 13:58 | RAD ---
EXAM DESCRIPTION: Fingers,Right CLINICAL HISTORY: CELLULITIS OF RIGHT FINGER COMPARISON: None. IMPRESSION: 3 views of the right third finger show no acute fracture, focal bone destruction, or joint dislocation. No periosteal reaction. Mild diffuse soft tissue swelling of the finger is seen with no soft tissue emphysema or radiopaque foreign bodies in the soft tissues. Mild joint space narrowing and joint line osteophytes of the DIP joint are seen consistent with osteoarthritic changes. Electronically signed by: Jake Alarcon MD 06/29/2019 1:56 PM CDT
== END ==
LOC: YCFC.O 12:50
PROVIDERS: ATTEND Family Medicine
DX: L03.011 Cellulitis of right finger (principal); M25.741 Osteophyte, right hand; E11.9 Type 2 diabetes mellitus without complications; E03.9 Hypothyroidism, unspecified

== ENCOUNTER → 2019-07-12 | Outpatient (CLI) | payer OTHER ==
--- NOTE | 2019-07-13 07:18 | MRI ---
EXAM DESCRIPTION: MRI right hand CLINICAL HISTORY: Cellulitis of the middle finger. Pain and swelling and redness. COMPARISON: Radiograph 06/29/2019 TECHNIQUE: Multiplanar, multisequence MR images of the right hand FINDINGS: Diffuse soft tissue swelling and edema of the middle finger. Mild edema and swelling of the other fingers included in the [id number]. Abnormal marrow signal throughout the distal phalanx and the distal aspect of the middle phalanx, intermediate T1, bright signal on PD fat sat and STIR images sparing only the proximal epiphysis of the middle phalanx over small region. No fracture on plain radiograph or on today's study. Joint space narrowing of the interphalangeal joints distal greater than proximal. Complete tear of the flexor digitorum profundus tendon from the distal phalanx. Retraction of the tendon to the level of the proximal interphalangeal joint. Tendon sheath effusion with laxity of the tendon most significantly along the mid palm at the level of the metacarpals Normal extensor tendon of the middle finger The other tendons included in the [id number] are normal Flexor digitorum superficialis tendon intact. IMPRESSION: Tear of the flexor digitorum profundus from the distal phalangeal attachment with proximal retraction to the PIP Diffuse marrow edema throughout the distal phalanx and distal aspect of the proximal phalanx. Given the contiguous soft tissue infection, diagnostic of osteomyelitis Results discussed with Dr. Lorenzo Electronically signed by: Brett Ca MD 07/13/2019 7:17 AM CDT
== END ==
LOC: YCFC.O 13:02
PROVIDERS: ATTEND Family Medicine
DX: L03.011 Cellulitis of right finger (principal); S66.112A Strain of flexor muscle, fascia and tendon of right middle finger at wrist and hand level, initial encounter

== ENCOUNTER 2019-07-20 05:39 | Day surgery (SDC) | payer OTHER ==
--- NOTE | 2019-07-18 14:40 | RAD ---
EXAM DESCRIPTION: Chest,2 Views CLINICAL HISTORY: preop COMPARISON: Previous study June 09, 2019 TECHNIQUE: PA/lateral FINDINGS: Heart is large with normal pulmonary vascularity. No pleural effusion or pneumothorax. Lungs are clear with no consolidating infiltrate. Lateral view shows intact sternum and T-spine. IMPRESSION: Large heart without congestive failure. Electronically signed by: Musa Dan MD 07/18/2019 2:38 PM CDT
[2019-07-20] MEDS ORDERED: SODIUM CHL 0.9% 100ML MINI-BAG 100 ML IVPB ONE (06:25)
[2019-07-20] MEDS ORDERED: LACTATED RINGERS 1,000 ML ONE (06:25)
[2019-07-20] MEDS ORDERED: ceFAZolin SODIUM 1 GM VIAL ONE ×2 (06:25→09:44)
[2019-07-20 09:27] VITALS: O2SAT 97
[2019-07-20] MEDS ORDERED: VANCOMYCIN HCL INJ 1,000 MG VIAL IVPB ONE ×2 (09:44→11:13)
[2019-07-20] MEDS ORDERED: LIDOCAINE 1% 10 ML VIAL INJ ONE ×3 (10:00→11:05)
[2019-07-20] MEDS ORDERED: PROPOFOL 200 MG/20 ML VIAL IV ONE (10:00)
[2019-07-20] MEDS ORDERED: MIDAZOLAM INJ 5 MG/5 ML VIAL ONE (10:37)
[2019-07-20] MEDS ORDERED: fentaNYL CITRATE INJ 50 MCG/ML AMP ONE (10:37)
[2019-07-20] MEDS ORDERED: KETAMINE HCL 100 MG/ML VIAL ONE (10:41)
[2019-07-20] MEDS ORDERED: BUPIVACAINE 0.25% INJ 30 ML VIAL INJ ONE (10:59)
[2019-07-20] MEDS ORDERED: SODIUM CHLORIDE 0.9% 250ML 250 ML ONE (11:13)
--- NOTE | 2019-07-21 08:19 | OP ---
DATE OF PROCEDURE: 07/20/19 PREOPERATIVE DIAGNOSIS: 1. Osteomyelitis of the right third digit. POSTOPERATIVE DIAGNOSIS: 1. Osteomyelitis of the right third digit. PROCEDURE: 1. Amputation at the proximal interphalangeal joint. SURGEON: London Orr MD. RESIDENTIAL GREEN BUILDING DESIGNER: Sanchez Fung CST, SA-C. ANESTHESIA: General anesthesia. FINDINGS: 1. Osteomyelitis of the distal phalanx. 2. Poor vascularity of the skin to the level of about the mid-phalanx. 3. Rupture of the flexor digitorum profundus. INDICATION: Ms. Mcleod has a history of infection at the distal end of the digit. She was unable to clear the infection and it turned into osteomyelitis. She subsequently also had rupture of the flexor digitorum profundus. Because of that and given her medical conditions, she is a candidate for amputation. After discussing the risks, benefits and alternatives to operative therapy, she gave informed consent. PROCEDURE: The patient was brought to the Operating Room and placed in supine position. General anesthesia was induced and the patient's arm was prepped and draped. Following prepping and draping, I examined the vascularity of the tissues and at the time, I felt as though the most appropriate level of amputation was at the PIP. As such, an incision was made in a fashion to allow a flap from dorsal to volar just distal to the level of the PIP. Dissection was carried down and the tissue had great vascularity at that point. The flexor digitorum superficialis was gone and therefore I preserved flexor digitorum profundus as well as the extensor mechanism. The condyles of the distal phalanx were debrided of cartilaginous tissue. The wound was very thoroughly irrigated and there were no signs of purulence or signs of infection at the level of the amputation. Drill holes were made in the phalanx and the flexor tendon and extensor tendon were tenodesed at that level. After that, the wound was again thoroughly irrigated and closed with reapproximation of the flap from dorsal to volar. It was closed with minimal tension. Sterile dressings were placed. The patient was awoken from anesthesia and taken to Recovery. POSTOPERATIVE PLAN: She is going to remain on antibiotics and and we will send the digit for pathology. She will return to see us in 2 days in clinic. We did discuss the possibility of further amputation if she does not heal this wound, which would include her smoking cessation and keeping the wound clean. Her daughter shared with me the fact that she does have issues at home with her dogs and has essentially refused to keep the dogs away from the wound and she felt this was partially responsible. Because of that, I essentially gave explicit instructions that the dogs are to stay away from the wound at all times. We will see her back again as stated in approximately 2 days. #[id number] MTDD
[2019-07-25 14:40] VITALS: BP 110/68; TEMP 97.8
== END 2019-07-20 13:15 | disposition home or self-care (01) ==
LOC: AMB 05:39
PROVIDERS: ATTEND Orthopaedic Surgery
DX: M86.8X4 Other osteomyelitis, hand (principal); E11.9 Type 2 diabetes mellitus without complications; E66.9 Obesity, unspecified; Z79.4 Long term (current) use of insulin; Z79.899 Other long term (current) drug therapy
CPT/HCPCS: 01830; 26951; 36415; 36416; 71046; 80048; 80307; 82948; 85025; 87070; 93005; J0690; J2250; J3010; J3370; J3490; J7050; J7120

== ENCOUNTER → 2019-09-29 | Outpatient (CLI) | payer OTHER | LOC: YCFC.O 11:15 | PROVIDERS: ATTEND Nurse Practitioner | DX: L03.119 Cellulitis of unspecified part of limb (principal) ==

== ENCOUNTER → 2019-10-17 | Outpatient (CLI) | payer OTHER ==
--- NOTE | 2019-10-17 13:09 | US ---
EXAM DESCRIPTION: Venous Doppler sonogram,Lower Extremity LT CLINICAL HISTORY: VARICOSE VEINS OF UNSPEC LOWER EXTREMITY COMPARISON: Previous left lower extremity venous Doppler sonogram July 19, 2018 TECHNIQUE: Left lower extremity venous duplex FINDINGS: Doppler evaluation of the left lower extremity deep veins was performed. Normal color flow is seen in the common femoral, superficial femoral, profunda femoral and greater saphenous veins. Normal flow is seen in the popliteal vein and veins below the knee in the calf. Normal venous compressibility and flow augmentation. IMPRESSION: Negative for evidence of deep venous thrombosis on left lower extremity venous Doppler sonogram. Electronically signed by: Musa Dan MD 10/17/2019 1:07 PM JOINT SUPERVISOR
--- NOTE | 2019-10-17 13:15 | US ---
EXAM DESCRIPTION: Venous,Lower Extremity RT CLINICAL HISTORY: VARICOSE VEINS OF UNSPEC LOWER EXTREMITY COMPARISON: None Available. TECHNIQUE: Right lower extremity venous duplex FINDINGS: Doppler evaluation of the right lower extremity deep veins was performed. Normal color flow is seen in the common femoral, superficial femoral, profunda femoral and greater saphenous veins. Normal flow is seen in the popliteal vein and veins below the knee in the calf. Normal venous compressibility and flow augmentation. IMPRESSION: Negative for evidence of deep venous thrombosis on right lower extremity venous Doppler sonogram. Electronically signed by: Musa Dan MD 10/17/2019 1:14 PM SENIOR CONTROLS ANALYST
--- NOTE | 2019-10-17 15:57 | US ---
Exam: Bilateral lower extremity arterial Doppler sonogram CLINICAL HISTORY: Soft tissue ulcer above the left ankle, lower extremity pain TECHNIQUE: Doppler sonographic evaluation of the bilateral lower extremities was performed. FINDINGS: Right Submitted sonographic images reveal normal widely patent vessels with no significant stenosis. Normal flow velocities with multiphasic flow throughout the right lower extremity. Mild plaque in the right lower extremity arteries. The following peak systolic flow flow velocity measurements were obtained: Common femoral artery velocity equals 93 centimeters per second , triphasic. Superficial femoral artery velocity equals 84 centimeters per second , triphasic. Popliteal artery velocity equals 60 centimeters per second , triphasic. Peroneal artery velocity equals 77 centimeters per second , triphasic. Posterior tibial artery velocity equals 0 centimeters per second , biphasic. Dorsalis pedis artery velocity equals 0 centimeters per second , biphasic. Left Submitted sonographic images reveal normal widely patent left lower extremity arteries with multiphasic flow and no significant stenosis. Mild plaque in the left lower extremity arteries. The following peak systolic flow flow velocity measurements were obtained: Common femoral artery velocity equals 82 centimeters per second , triphasic. Superficial femoral artery velocity equals 136 centimeters per second , biphasic. Popliteal artery velocity equals 71 centimeters per second , triphasic. Peroneal artery velocity equals 52 centimeters per second , biphasic. Posterior tibial artery velocity equals 92 centimeters per second , biphasic. Dorsalis pedis artery velocity equals 21 centimeters per second , biphasic. IMPRESSION: Normal multiphasic flow in the lower extremity arteries with no significant stenosis. Electronically signed by: Musa Dan MD 10/17/2019 3:56 PM TRACK PATROL
== END ==
LOC: US 11:08
PROVIDERS: ATTEND Nurse Practitioner
DX: I83.009 Varicose veins of unspecified lower extremity with ulcer of unspecified site (principal); R60.9 Edema, unspecified

== ENCOUNTER 2020-02-14 22:58 | Emergency (ER) | payer OTHER ==
[2020-02-14] MEDS ORDERED: SODIUM CHLORIDE 0.9% (FLUSH) 10 ML SYG IV PRN (23:18)
[2020-02-14] MEDS ORDERED: fentaNYL CITRATE INJ 50 MCG/ML 2 ML AMP IV ONE (23:20)
[2020-02-14] MEDS ORDERED: ONDANSETRON INJ 4 MG/2 ML VIAL IV ONE (23:20)
[2020-02-14] MEDS ORDERED: ASPIRIN (CHEWABLE) 81 MG TAB PO ONE (23:20)
--- NOTE | 2020-02-15 00:05 | RAD ---
CHEST 1 VIEW on 02/14/2020 CLINICAL INDICATION: Shortness of breath COMPARISON: 07/18/2019 FINDINGS: Patient is somewhat rotated on this exam. Heart is upper limits normal for size. Lungs appear clear. Hilar and mediastinal contours are within normal limits. Pulmonary vascularity is within normal limits. IMPRESSION: No acute disease. Electronically signed by: Augusto Hutchins 02/15/2020 12:04 AM CDT
[2020-02-15 00:06] VITALS: BP 108/40
--- NOTE | 2020-02-15 00:39 | ED.PDOC ---
History of Present Illness - General Chief Complaint: Cardiovascular Problem Stated Complaint: chest pain, cough, sob x months Time Seen by Provider: 02/14/20 23:18 Source: patient, RN notes reviewed, Vital Signs reviewed, EMS notes reviewed Exam Limitations: no limitations - History of Present Illness Initial Comments: Rainouts disease patient is a 64-year-old woman who presents with complaints of chest pain, cough, subjective fevers, generalized body pain this been ongoing for months. 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 Extensively, her soon-to-be [id number] was tested for COVID today at the longterm or 1 of the other emergency departments in the area. Patient's chest pain is sharp and stabbing in nature. It does not radiate. She has no associated nausea or vomiting with it nor does she have diaphoresis. The pain is moderate intensity. Nothing makes it better or worse.. The cough is nonproductive. Not made better or worse by anything. The fever is subjective. The body aches and back pain are sharp and stabbing in nature. Severe in intensity. Nonradiating. Not improved or worsened by anything. Timing/Duration: other - Months worsening over the last 3 days. Severity/Quality: moderate, sharp, stabbing Location: substernal Chest Pain Radiation: no radiation Activities at Onset: emotional stress Prior Chest Pain/Cardiac Workup: no prior chest pain Improving Factors: nothing Worsening Factors: nothing Nitro Today/Relief: no nitro taken today Aspirin Treatment Today: no aspirin today Associated Symptoms: back pain, fatigue, fever/chills - Subjective Allergies/Adverse Reactions: Allergies anxiety medication Allergy (Uncoded 07/17/18 23:05) does not know name of med. Reports medications that she was given had opposite effect. medication made anxiety worse. Home Medications: Ambulatory Orders Clonazepam 0.5 - 1 mg PO Q12H PRN 07/17/18 Duloxetine HCl 60 mg PO BID 07/17/18 Fesoterodine Fumarate [Toviaz] 4 mg PO DAILY 07/17/18 Levothyroxine Sodium 50 mcg PO DAILY 07/17/18 Lisinopril & Hydrochlorothiazi [Lisinopril/Hctz 20-12.5 mg] 1 tab PO BID 07/17/18 Omeprazole 20 mg PO DAILY 07/17/18 Pregabalin [Lyrica] 75 mg PO BID 07/17/18 Empagliflozin [Jardiance] 25 mg PO DAILY 04/23/19 Mupirocin 2 % Oint [Bactroban Oint] 22 gm TOP BID 10 Days #1 tube 06/09/19 Insulin Degludec [Tresiba] 60 unit SC BID 07/19/19 Review of Systems - Review of Systems Constitutional: States: see HPI, chills, fever - Subjective EENTM: States: no symptoms reported Respiratory: States: see HPI, cough. Denies: short of breath, stridor Cardiology: States: see HPI, chest pain. Denies: palpitations, syncope Gastrointestinal/Abdominal: States: no symptoms reported. Denies: abdominal pain, diarrhea, nausea, vomiting Genitourinary: States: no symptoms reported Musculoskeletal: States: see HPI, back pain, neck pain Skin: States: no symptoms reported. Denies: change in color, rash Neurological: States: anxiety. Denies: headache, numbness, paresthesia Endocrine: States: no symptoms reported Hematologic/Lymphatic: States: no symptoms reported All other Systems: No Change from Baseline Past Medical History (General) - Patient Medical History Hx Seizures: No Hx Stroke: No Hx Dementia: No Hx Asthma: Yes Hx of COPD: No Hx Cardiac Disorders: Yes Hx Congestive Heart Failure: No Hx Pacemaker: No Hx Hypertension: Yes Hx Thyroid Disease: No Hx Diabetes: Yes Hx Gastroesophageal Reflux: No Hx Renal Disease: No Hx Cancer: No Hx of HIV: No Hx Hepatitis C: No Hx MRSA: No MRSA Source:: Wound Surgical History: cholecystectomy, Hysterectomy - Vaccination History Hx Tetanus, Diphtheria Vaccination: Yes Hx Influenza Vaccination: No Hx Pneumococcal Vaccination: No - Social History Hx Tobacco Use: No Hx Chewing Tobacco Use: No Hx Alcohol Use: No Hx Substance Use: No Hx Substance Use Treatment: No Hx Depression: No Feels Threatened In Home Enviroment: No Feels Threatened In a Relationship: No Hx Physical Abuse: No Hx Emotional Abuse: No Hx Suspected Abuse: No - Female History Patient is a Female of Child Bearing Age (10 -59 yrs old): No Patient : No Family Medical History - Family History Mother Living Status: Still Living Hx Family Diabetes: Yes Father Living Status: Hx Cardiac Disease: Yes Hx Family Diabetes: Yes Physical Exam - Physical Exam General Appearance: Agitated, Alert, Anxious, Obvious distress, Obese, Unkempt, Well Developed, Well Hydrated, Well Nourished Eyes, Ears, Nose, Throat Exam: PERRL/EOMI, normal ENT inspection, pharynx normal Neck: non-tender, full range of motion, supple, normal inspection Respiratory: chest non-tender, lungs clear, normal breath sounds, no respiratory distress, no accessory muscle use Cardiovascular/Chest: normal peripheral pulses, no edema, no murmur, tachycardia Peripheral Pulses: radial,right: 2+, radial,left: 2+ Gastrointestinal/Abdominal: normal bowel sounds, non tender, soft, no organomegaly Extremity: normal range of motion, non-tender, normal inspection, no pedal edema 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 02/15/20 00:58 Patient labs are negative for VT. COVID-19 is pending. Chest x-ray is unremarkable. Plan on discharge home with self seclusion until the COVID-19 test is returned. I discussed the plan of care with the patient she voices understanding and agreement. Delvin Seaman M.D. #[id number] - Results/Orders Results/Orders: CHEST 1 VIEW on 02/14/2020 CLINICAL INDICATION: Shortness of breath COMPARISON: 07/18/2019 FINDINGS: Patient is somewhat rotated on this exam. Heart is upper limits normal for size. Lungs appear clear. Hilar and mediastinal contours are within normal limits. Pulmonary vascularity is within normal limits. IMPRESSION: No acute disease. Electronically signed by: Augusto Hutchins 02/15/2020 12:04 AM EKG performed on 14 February 2020 at 2340 hrs.: Sinus tachycardia at 107 bpm, low voltage QRS, septal infarct, age indeterminate, abnormal EKG. 02/14/20 23:18 IV Care:Saline Lock per Protoc QSHIFT Telemetry ONCE Sodium Chloride 0.9% (Flush) [Saline Flush Syringe] 3 ml IV PRN PRN Oxygen Stat 02/14/20 23:19 EKG Assessment ONCE Oxygen Delivery Assessment: QSHIFT Pulse Oximetry Assessment DAILY 02/14/20 23:30 EKG STAT 02/14/20 23:54 SARS-COV2 RT-PCR HIGH RISK Stat 02/15/20 09:00 Pulse Ox Daily Laboratory Results - last 24 hr 02/14/20 23:29 WBC 10.2 RBC 4.41 Hgb 12.1 Hct 37.4 MCV 84.8 MCH 27.4 MCHC 32.3 L RDW 15.8 H Plt Count 115 L MPV 9.9 Absolute Neuts (auto) 9.10 H Absolute Lymphs (auto) 0.40 L Absolute Monos (auto) 0.50 Absolute Eos (auto) 0.10 Absolute Basos (auto) 0.00 Neutrophils % 90.0 H Lymphocytes % 4.2 L Monocytes % 4.5 Eosinophils % 0.9 L Basophils % 0.4 PT 10.5 INR 1.06 PTT (SP) 24.2 Sodium 135 Potassium 4.1 Chloride 105 Carbon Dioxide 19 L Anion Gap 15.1 BUN 26 H Creatinine 1.22 BUN/Creatinine Ratio 21.3 H Random Glucose 223 H Serum Osmolality 281.8 Calcium 8.9 Magnesium 1.7 L Creatine Kinase 141 H CK-MB (CK-2) 2.9 CK-MB (CK-2) % Not Reportable Troponin I 0.02 Vital Signs 02/14/20 02/15/20 23:19 00:00 Temperature 99.5 F Pulse Rate [ 108 H 105 H Pulse ox] Respiratory 20 18 Rate Blood Pressure 100/52 108/40 [Right Arm] O2 Sat by Pulse 98 98 Oximetry Departure - Departure Clinical Impression: Cough, Anxiety Chronic back pain Qualifiers: Back pain location: back pain in unspecified location Back pain laterality: bilateral Qualified Code(s): M54.9 - Dorsalgia, unspecified; G89.29 - Other chronic pain Chest pain Qualifiers: Chest pain type: unspecified Qualified Code(s): R07.9 - Chest pain, unspecified Time of Disposition: 01:09 Disposition: Discharge to Home or Self Care Condition: Good Departure Forms: ED Discharge - Pt. Copy, Patient Portal Self Enrollment Instructions: DI for Chest Pain Diet: resume usual diet Activity: increase activity as tolerated Referrals: Anthony Lorenzo MD [Primary Care Provider] - 1-5 Days Home Medications: Ambulatory Orders Clonazepam 0.5 - 1 mg PO Q12H PRN 07/17/18 Duloxetine HCl 60 mg PO BID 07/17/18 Fesoterodine Fumarate [Toviaz] 4 mg PO DAILY 07/17/18 Levothyroxine Sodium 50 mcg PO DAILY 07/17/18 Lisinopril & Hydrochlorothiazi [Lisinopril/Hctz 20-12.5 mg] 1 tab PO BID 07/17/18 Omeprazole 20 mg PO DAILY 07/17/18 Pregabalin [Lyrica] 75 mg PO BID 07/17/18 Empagliflozin [Jardiance] 25 mg PO DAILY 04/23/19 Mupirocin 2 % Oint [Bactroban Oint] 22 gm TOP BID 10 Days #1 tube 06/09/19 Insulin Degludec [Tresiba] 60 unit SC BID 07/19/19 Additional Instructions: Patient to self isolate at home until her COVID-19 test is returned.
[2020-02-15 01:04] VITALS: O2SAT 96
[2020-02-15 02:09] VITALS: TEMP 99.2
== END 2020-02-15 02:15 | disposition home or self-care (01) ==
LOC: ER 22:58
DX: R05 Cough (principal); F41.9 Anxiety disorder, unspecified; R07.9 Chest pain, unspecified; G89.29 Other chronic pain; M54.9 Dorsalgia, unspecified; Z20.828 Contact with and (suspected) exposure to other viral communicable diseases; E11.9 Type 2 diabetes mellitus without complications; I10 Essential (primary) hypertension; Z79.4 Long term (current) use of insulin; Z79.899 Other long term (current) drug therapy
CPT/HCPCS: 71045; 80048; 82550; 82553; 84484; 85025; 85610; 85730; 87635; 93005; J2405; J3010

== ENCOUNTER → 2020-05-15 | Outpatient (CLI) | payer OTHER | LOC: YCFC.O 16:42 | PROVIDERS: ATTEND Family Medicine | DX: I83.009 Varicose veins of unspecified lower extremity with ulcer of unspecified site (principal) ==